=== PATIENT | male | born 1955 | race Caucasian/White ===

== ENCOUNTER → 2018-08-14 | Day surgery (SDC) | payer MEDICARE, BC ==
[2018-08-11 10:31] VITALS: BMI 31.8
[~2018-08-14] MED LIST: ALPRAZolam 0.25 MG TAB PO PRN; ASPIRIN 325 MG TAB PO STA; HEPARIN SODIUM 1,000 UN/ML (10ML VL) IV ONE; HEPARIN SODIUM 1,000 UN/ML (10ML VL) ONE; LIDOCAINE 1% INJ 10MG/ML (20 ML MDV) ONE; LIDOCAINE 1% INJ 10MG/ML (20 ML MDV) SQ ONE; MIDAZOLAM (PF) 2 MG/2 ML VIAL IV ONE; RX INFO: IV CONTRAST WAS GIVEN 1 EACH MISC MISCELLANE PRN; SODIUM CHLORIDE 0.9% 1,000 ML IV SCH; SODIUM CHLORIDE 0.9% 1,000 ML in EMPTY BAG 1 BAG IV ONE; VERAPAMIL 2.5 MG/ML 2 ML AMP ONE
[2018-08-14 09:27] VITALS: RESP 18; TEMP 97.7
[2018-08-14] MEDS: VERAPAMIL SYRINGE (5 MG/10 ML) INTRAARTER ONE ×2 (10:57→11:05)
[2018-08-14 14:29] VITALS: BP 118/66; PULSE 66
--- NOTE | 2018-08-14 15:12 | LTR ---
August 14, 2018 To: Dr. Torres Re: Candido Mayyd (51) Dear Dr. Torres, MrMurphy Marina underwent today a heart catheterization that revealed normal coronaries. I want to thank you for allowing us to participate in his care. Please do not hesitate to call with any questions or concerns. Sincerely, Wilfrid Hsu M.D. JENAE / BETH: [id number] /
--- NOTE | 2018-08-14 15:12 | CC ---
CARDIAC CATHETERIZATION REPORT DATE OF SERVICE: 08/14/2018 PERFORMING PHYSICIAN: Wilfrid Hsu MD, central supply technician. PROCEDURES PERFORMED: 1. Selective right and left coronary angiogram. 2. Left heart catheterization. INDICATION: This is a pleasant 62-year-old gentleman with history of hypertension and dyslipidemia who continues to have shortness of breath with exertion in spite of maximized medical treatment. He underwent a stress test that came in to be normal. Because of the continuation of his symptoms, heart catheterization was advised. APPROACH: Right radial artery. COMPLICATIONS: None. LEVEL OF SEDATION: Moderate with sedation length of 12 minutes. PROCEDURE DESCRIPTION: After obtaining informed consent, the patient was brought to the cardiac construction craft laborer. The right radial artery was cannulated using micropuncture technique. The micropuncture wire passed easily. Then I placed a 5-Vietnamese sheath in the right radial artery. After that I gave the patient 2 mg of verapamil IA and 10,000 units of heparin IV. Selective right and left coronary angiogram was performed using JR4 and JL3.5 catheters. Left heart catheterization was performed using the JR4 catheter, which flipped into the LV. Then I did pullback across the aortic valve. The procedure was completed without any complication. SELECTIVE CORONARY ANGIOGRAM: 1. The right coronary artery is a large-caliber vessel. It is a dominant vessel. It is angiographically normal. It bifurcates into PDA and PLV branches. Both appeared to be angiographically normal. 2. The left main is angiographically normal. It bifurcates into left circumflex, ramus intermedius and left anterior descending artery. 3. Left circumflex is a large-caliber vessel. It is a nondominant vessel. The left circumflex is angiographically normal. In the mid portion it gives rise to 3 obtuse marginal branches. They appeared to be angiographically normal. The circumflex continued after that as a small-caliber vessel in the AV groove. 4. Ramus intermedius is a moderate-caliber vessel and seems to be angiographically normal. 5. The LAD. The proximal LAD is normal and gives rise to a large diagonal branch which seems to be normal. The mid LAD and distal LAD appeared to be normal as well. HEMODYNAMICS: The left ventricular end-diastolic pressure was 14 mmHg without significant gradient across the aortic valve. CONCLUSION: 1. Normal coronary angiogram. 2. Normal left ventricular end-diastolic pressure. POST-PROCEDURE MANAGEMENT: 1. Medical treatment. 2. Follow up with the patient. JENAE / ASHLEYN: [id number] /
== END | disposition home or self-care (01) ==
LOC: CATHCVL 08:48
PROVIDERS: ATTEND Internal Medicine Interventional Cardiology
DX: R06.02 Shortness of breath (principal); I10 Essential (primary) hypertension; E78.5 Hyperlipidemia, unspecified; E78.00 Pure hypercholesterolemia, unspecified; Z79.899 Other long term (current) drug therapy; Z72.0 Tobacco use; Z88.6 Allergy status to analgesic agent
CPT/HCPCS: 93458; C1769; C1894; J2001; J1644; J2250

== ENCOUNTER → 2019-02-16 | Outpatient (CLI) | payer MEDICARE, BC ==
--- NOTE | 2019-02-16 09:02 | US ---
EXAMINATION TYPE: US duplex aorta DATE OF EXAM: 02/16/2019 COMPARISON: NONE CLINICAL HISTORY: Z13.6 Encounter for screening for cardiovascular d. EXAM MEASUREMENTS: Abdominal Aorta: Proximal: 2.7 x 2.6 cm Mid: 2.3 x 2.3 cm Distal: 2.1 x 1.7 cm Bifurcation: 1.0 cm 1.1 cm No evidence of AAA. Proximal portion difficult to evaluate due to large amounts of bowel gas. IMPRESSION: Proximal abdominal aorta was difficult to visualize however no sonographic evidence of ab dominal aortic aneurysm in the visualized portions of the abdominal aorta.
== END ==
LOC: RADUSWWP 06:53
PROVIDERS: ATTEND Family Medicine
DX: Z13.6 Encounter for screening for cardiovascular disorders (principal)
CPT/HCPCS: 93979

== ENCOUNTER → 2019-03-16 | Outpatient (CLI) | payer MEDICARE, BC ==
[2019-03-16 13:35] LABS: Basophils % (A) 1 %; Eosinophils # (A) 0.1 k/uL (0-0.7); Eosinophils % (A) 2 %; HCT 43.6 % (39.0-53.0); Lymphocytes # (A) 2.1 k/uL (1.0-4.8); Lymphocytes % (A) 26 %; MCHC 34.5 g/dL (31.0-37.0); MCV 89.7 fL (80.0-100.0); Mean Platelet Volume 6.5; Monocytes # (A) 0.6 k/uL (0-1.0); Monocytes % (A) 7 %; Neutrophils # (A) 5.1 k/uL (1.3-7.7); Neutrophils % (A) 63 %; Platelet Count 263 k/uL (150-450); RBC 4.86 m/uL (4.30-5.90); RDW 12.2 % (11.5-15.5); WBC 8.2 k/uL (3.8-10.6)
[2019-03-16 13:55] LABS: Potassium 4.2 mmol/L (3.5-5.1)
== END ==
LOC: LABPAT 12:09
PROVIDERS: ATTEND Orthopaedic Surgery
DX: Z01.812 Encounter for preprocedural laboratory examination (principal); M23.92 Unspecified internal derangement of left knee
CPT/HCPCS: 36415; 80051; 85025

== ENCOUNTER 2019-04-01 12:03 | Day surgery (SDC) | payer MEDICARE, BC ==
[2019-03-31 12:54] VITALS: BMI 32.1
--- NOTE | 2019-03-31 14:12 | HP ---
HISTORY AND PHYSICAL DATE OF SURGERY: 04/01/2019 Candido Marina is a 63-year-old patient seen with progressive left knee pain. We discussed options for treatment. He elected to proceed with arthroscopy. Consent was obtained. PAST MEDICAL HISTORY: Hypertension, hyperlipidemia. PAST SURGICAL HISTORY: Right total knee arthroplasty, revision right total knee arthroplasty. Implantation of neurostimulator. DAILY MEDICATIONS: 1. Amlodipine. 2. Losartan. 3. Simvastatin. ALLERGIES: CATAFLAM. SOCIAL HISTORY: He denies current tobacco use. PHYSICAL EVALUATION OF THE LEFT KNEE: Range of motion is -3 to 90. There is a moderately severe effusion present. Tenderness medial joint line. Positive medial Bobbi's. Ligaments are stable. Hip rotation is without pain. Distal neurovascular exam is intact. Left knee radiographs reveal mild osteoarthritis. IMPRESSION: 1. Internal derangement, left knee with meniscal tear. 2. Hypertension. 3. Hyperlipidemia. PLAN: Left knee arthroscopy with partial meniscectomy and debridement. MMODL / IJN: [id number] /
[~2019-04-01 12:03] MED LIST changes: -ALPRAZolam 0.25 MG TAB PO PRN; -ASPIRIN 325 MG TAB PO STA; -HEPARIN SODIUM 1,000 UN/ML (10ML VL) IV ONE; -HEPARIN SODIUM 1,000 UN/ML (10ML VL) ONE; -LIDOCAINE 1% INJ 10MG/ML (20 ML MDV) ONE; -LIDOCAINE 1% INJ 10MG/ML (20 ML MDV) SQ ONE; -MIDAZOLAM (PF) 2 MG/2 ML VIAL IV ONE; +ONDANSETRON 4 MG/2 ML VIAL IVP PRN; -RX INFO: IV CONTRAST WAS GIVEN 1 EACH MISC MISCELLANE PRN; -SODIUM CHLORIDE 0.9% 1,000 ML IV SCH; -SODIUM CHLORIDE 0.9% 1,000 ML in EMPTY BAG 1 BAG IV ONE; -VERAPAMIL 2.5 MG/ML 2 ML AMP ONE
[2019-04-01] MEDS: LACTATED RINGERS 1,000 ML IV SCH ×2 (13:30→13:35)
[2019-04-01] MEDS ORDERED: DEXAMETHASONE SOD PHOSPHATE 10 MG/ML 1 ML VIAL IV ONE (13:30)
[2019-04-01] MEDS ORDERED: fentaNYL (PF) 50 MCG/ML 2 ML AMP ONE (14:09)
[2019-04-01] MEDS ORDERED: BUPIVACAIN-EPI 0.25%-1:200,000 30 ML VIAL INTRAARTIC ONE (14:09)
[2019-04-01] MEDS ORDERED: PROPOFOL 10 MG/ML 20 ML VIAL IV ONE (14:09)
[2019-04-01] MEDS ORDERED: MIDAZOLAM 2 MG/2 ML VIAL ONE (14:09)
[2019-04-01] MEDS ORDERED: SUCCINYLCHOLINE CHLORIDE 100 MG/5 ML SYR IV ONE (14:09)
[2019-04-01] MEDS ORDERED: LIDOCAINE 1% INJ 10MG/ML (20 ML MDV) ONE (14:09)
[2019-04-01 14:59] VITALS: TEMP 96.8
[2019-04-01 15:01] VITALS: RESP 16
--- NOTE | 2019-04-01 15:03 | P.OP ---
Date of Procedure: 04/01/19 Preoperative Diagnosis: Internal derangement left knee Postoperative Diagnosis: 1. Tear medial and lateral meniscus left knee 2. Grade 3 chondromalacia medial femoral condyle 3. 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 Reactive synovitis medial, lateral and suprapatellar compartments left knee Procedure(s) Performed: 1. Arthroscopic partial medial meniscectomy left knee 2. Arthroscopic chondroplasty medial femoral condyle left knee 3. Arthroscopic chondroplasty patellofemoral joint left knee 4. Arthroscopic partial synovectomy medial, lateral and suprapatellar compartments left knee Anesthesia: KEENANA, local Surgeon: Anup Grimes Estimated Blood Loss (ml): 5 Pathology: none sent Condition: stable Disposition: PACU Indications for Procedure: 63-year-old patient seen with progressive left knee pain. After treatment options were discussed, he elected to proceed with arthroscopy. Operative Findings: See description of procedure Description of Procedure: Patient was taken to the operative suite. Patient underwent a general anesthetic by the department of anesthesia. Patient was given preoperative antibiotics. The left lower extremity was placed in a well-padded arthroscopic leg ware. The left leg was prepped and draped in the normal sterile orthopedic fashion. A lateral parapatellar and suprapatellar incision was made. Trochars were inserted. Arthroscopy was initiated. Suprapatellar pouch revealed diffuse thick reactive synovitis. The patellofemoral joint appeared to articulate congruently. There was grade 4 chondromalacia changes of the femoral sulcus with some peripheral osteochondral flap tear present as well as grade 3/4 chondromalacia changes about the inferior pole of the patella. The scope was guided into the medial gutter. No loose bodies or plica were identified. The scope was then guided into the medial compartment. A medial parapatellar incision was made. Trocar inserted followed by probe. There was a complex tear involving the posterior horn medial meniscus which extended into the midbody. There were grade 3 chondromalacia changes of the medial femoral condyle with some osteochondral flap tears present. There was thick reactive synovitis anteriorly. I performed a partial medial meniscectomy. I performed a chondroplasty of the medial femoral condyle. I performed a partial synovectomy decompressing the reactive synovitis. The residual meniscus was probed and found to be stable. There was an area of grade 4 chondromalacia no noted along the medial aspect of the medial tibial plateau. The residual osteochondral surface of the medial femoral condyle was stable. There was good decompression of the synovitis. Scope and probe were then guided into the intercondylar notch. Cruciates were identified, probed and found to be stable. The scope and probe were then guided into lateral compartment. There was a complex tear involving the posterior lateral meniscus. There were grade 1/2 chondromalacia changes lateral femoral condyle with no osteochondral flap tears present. There was thick reactive synovitis anteriorly. I performed a partial lateral meniscectomy down to stable tissue. I performed a partial synovectomy decompressing the reactive synovitis. The residual meniscus was stable. There was good decompression of the synovitis. The scope was in guided back into the suprapatellar compartment. I introduced a motorized shaver into the suprapatellar compartment. I debrided some piecemeal fragments of meniscus I encountered. I performed a chondroplasty to the femoral sulcus getting down to good stable osteochondral tissue. I performed a partial synovectomy decompressing the thick reactive synovitis. Shaver was removed. I took one more look on the entire knee, no residual debris. Instruments were now removed from the joint. The joint was infiltrated with .25% Marcaine. Steri-Strips were applied to the portal sites. Sterile dressings were applied. The patient was placed into a AZUCENA hose. No tourniquet was utilized. The patient was awakened, transferred to a bed and taken to recovery stable satisfactory condition.
[2019-04-01] MEDS: HYDROmorphone 0.5 MG/0.5 ML SYRINGE IVP PRN ×4 (15:08→15:34)
[2019-04-01 16:23] VITALS: BP 137/79; PULSE 75
== END 2019-04-01 16:48 | disposition home or self-care (01) ==
LOC: OR 12:03
PROVIDERS: ATTEND Orthopaedic Surgery
DX: M23.322 Other meniscus derangements, posterior horn of medial meniscus, left knee (principal); M23.352 Other meniscus derangements, posterior horn of lateral meniscus, left knee; M94.262 Chondromalacia, left knee; M65.862 Other synovitis and tenosynovitis, left lower leg; I10 Essential (primary) hypertension; E78.5 Hyperlipidemia, unspecified; I45.10 Unspecified right bundle-branch block; Z88.6 Allergy status to analgesic agent; Z96.651 Presence of right artificial knee joint; Z98.890 Other specified postprocedural states; Z79.899 Other long term (current) drug therapy; Z87.891 Personal history of nicotine dependence; Z98.811 Dental restoration status
CPT/HCPCS: 29880; J2250; J1100; J0690; J2405; J2001; J3010; J0330; J2704; J1170

== ENCOUNTER → 2019-10-14 | Outpatient (CLI) | payer MEDICARE | END | disposition home or self-care (01) | LOC: LABWHC1 10:02 | PROVIDERS: ATTEND Orthopaedic Surgery | DX: Z01.812 Encounter for preprocedural laboratory examination (principal) | CPT/HCPCS: 87070 ==

== ENCOUNTER 2019-11-08 10:33 | Day surgery (SDC) | payer MEDICARE ==
[2019-11-05 09:35] VITALS: BMI 32.1
--- NOTE | 2019-11-07 11:06 | HP ---
HISTORY AND PHYSICAL Surgery 11/08/2019. Candido Marina is a 64-year-old patient seen with symptomatic left knee osteoarthritis. We discussed options. He elected to proceed with left total knee arthroplasty. Consent regarding the procedure was obtained. Medical clearance was provided by Dr. Long. Cardiac clearance provided by Dr. Hsu. PAST MEDICAL HISTORY: Hypertension, hyperlipidemia. PAST SURGICAL HISTORY: Right total knee arthroplasty revision, right total knee arthroplasty, left knee arthroscopy. MEDICATIONS: Amlodipine, losartan, simvastatin. ALLERGIES: CATAFLAM. SOCIAL HISTORY: Denies tobacco use. PHYSICAL EXAMINATION: Evaluation of the left knee: Range of motion is -3 to 110. Tenderness along the medial joint line. Crepitus medial patellofemoral compartments. There is pain with patellofemoral compression. Ligaments are stable. Hip rotation is without pain. His distal neurovascular exam is intact. Radiographs of the left knee reveal severe osteoarthritic changes. IMPRESSION: 1. Left knee osteoarthritis. 2. Hypertension. 3. Hyperlipidemia. PLAN: Left total knee arthroplasty. MMODL / IJN: [id number] /
[~2019-11-08 10:33] MED LIST changes: +LIDOCAINE 1% (10MG/ML) FOR IV START INTRADERMA PRN; -ONDANSETRON 4 MG/2 ML VIAL IVP PRN; +ROPIVACAINE 246.25 MG, EPINEPHrine 0.5 MG, KETOROLAC 30 MG, cloNIDine HCL/PF 80 MCG, WA... MISCELLANE ONE; +TRANEXAMIC ACID 1,000 MG in SODIUM CHLORIDE 0.9% 100 ML IVPB ONE
[2019-11-08] MEDS ORDERED: ACETAMINOPHEN TAB 500 MG TAB ONE (11:09)
[2019-11-08] MEDS: MELOXICAM 7.5 MG TAB PO ONE ×2 (11:10→11:22)
[2019-11-08] MEDS: ACETAMINOPHEN TAB 500 MG TAB PO ONE ×2 (11:10→11:22)
[2019-11-08] MEDS ORDERED: MIDAZOLAM 2 MG/2 ML VIAL IVP ONE (11:18)
[2019-11-08] MEDS: ONDANSETRON 4 MG/2 ML VIAL ONE ×2 (11:20→11:22)
[2019-11-08] MEDS ORDERED: DEXAMETHASONE SOD PHOSPHATE 10 MG/ML 1 ML VIAL IV ONE (11:20)
[2019-11-08] MEDS: LACTATED RINGERS 1,000 ML IV SCH ×5 (11:21→20:53)
[2019-11-08] MEDS ORDERED: ROPIVACAINE 0.2%-NS ON-Q PUMP 1,090 MG, EMPTY PAIN BALL 1 EACH MISCELLANE PRN (11:36)
[2019-11-08] MEDS ORDERED: ROCURONIUM BROMIDE 10 MG/ML 5 ML VIAL IV ONE (13:01)
[2019-11-08] MEDS ORDERED: PROPOFOL 10 MG/ML 20 ML VIAL IV ONE (13:01)
[2019-11-08] MEDS ORDERED: fentaNYL (PF) 50 MCG/ML 2 ML AMP ONE (13:01)
[2019-11-08] MEDS ORDERED: GLYCOPYRROLATE 0.2 MG/ML 2 ML VIAL ONE (13:01)
[2019-11-08] MEDS ORDERED: LIDOCAINE 1% INJ 10MG/ML (20 ML MDV) ONE (13:01)
[2019-11-08] MEDS ORDERED: PHENYLEPHRINE-0.9% NACL SYG 1 MG/10 ML SYRINGE ONE (13:01)
[2019-11-08] MEDS ORDERED: MIDAZOLAM 2 MG/2 ML VIAL ONE (13:01)
[2019-11-08] MEDS ORDERED: NEOSTIGMINE 1 MG/ML 10 ML VIAL ONE (13:01)
[2019-11-08] MEDS ORDERED: TRANEXAMIC ACID 1,000 MG/10 ML VIAL ONE (13:01)
[2019-11-08] MEDS ORDERED: SODIUM CHLORIDE 0.9% 100 ML BAG ONE (13:01)
[2019-11-08] MEDS ORDERED: SUCCINYLCHOLINE CHLORIDE 100 MG/5 ML SYR IV ONE (13:01)
[2019-11-08] MEDS ORDERED: SODIUM CHLORIDE 0.9% 50 ML IV ONE (14:00)
[2019-11-08] MEDS ORDERED: LACTATED RINGERS 1,000 ML IV ONE (14:15)
[2019-11-08] MEDS ORDERED: ONDANSETRON 4 MG/2 ML VIAL IVP PRN (14:51)
[2019-11-08] MEDS ORDERED: NALOXONE 0.4 MG/ML 1 ML VIAL IV PRN (14:51)
[2019-11-08] MEDS ORDERED: HYDROcodone/APAP 5-325MG 1 EACH TAB PO PRN ×2 (14:51)
[2019-11-08] MEDS ORDERED: HYDROmorphone 0.5 MG/0.5 ML SYRINGE IVP PRN (14:51)
[2019-11-08] MEDS ORDERED: HYDROmorphone 1 MG/ML 1 ML SYRINGE IVP PRN (14:51)
--- NOTE | 2019-11-08 14:51 | P.OP ---
Date of Procedure: 11/08/19 Preoperative Diagnosis: Left knee osteoarthritis Postoperative Diagnosis: Left knee osteoarthritis Procedure(s) Performed: Left total knee arthroplasty Implants: 1. Depuy attune size 7 left cruciate-retaining cemented femur 2. Depuy attune size 7 fixed bearing cemented tibial baseplate 3. Depuy attune size 7 fixed bearing cruciate retaining 7 mm polyethylene tibial insert 4. Depuy attune 38 mm all polyethylene cemented patella Anesthesia: GETA, regional (Adductor canal catheter), local Surgeon: Anup Grimes Marbleizing Machine Tender #1: Daniel Hall Estimated Blood Loss (ml): 45 Pathology: other (Bone) Condition: stable Disposition: PACU Indications for Procedure: 64 -year-old patient seen with symptomatic left knee osteoarthritis. After treatment options were discussed, he elected to proceed with total knee arthroplasty. Operative Findings: See description of procedure Description of Procedure: Patient was taken to the operative suite after having an adductor canal catheter placed by the department of anesthesia. Patient underwent a general anesthetic by the department of anesthesia. Patient was given preoperative IV intake antibiotics and TXA. A well-padded tourniquet was placed about the left lower extremity. The lower extremity was then prepped and draped in the normal sterile orthopedic fashion. The extremity was elevated, a tourniquet was insuf flated to 300. A standard anterior incision was made sharply through skin. Dissection was taken down through the subcutaneous soft tissues down to the extensor mechanism. A medial arthrotomy was performed, patella was everted and knee was flexed. There was advanced osteoarthritis noted. I introduced my distal intramedullary femoral drill. I then introduced the distal femoral cutting jig. Matthew VALLE secured the cutting jig with 2 pins. I held retractors in position while Matthew VALLE performed the distal femoral resection through the guide area we now removed her distal femoral cutting guide. We now placed our 4-in-1 femoral cutting block and positioned and it was secured with 2 pins by Matthew VALLE while I held the block in position. The distal femoral finishing was now completed. A proximal tibial cutting guide was positioned. I held the guide in the appropriate position with both hands well Matthew VALLE inserted stabilizing pins into the guide. Proximal tibial cut was made. We now placed a trial femoral component into position, along with an appropriate size tibial tray and insert. We now took the knee through range of motion and had full extension good flexion and good overall soft tissue balance noted. The patella was everted and stabilized with 2 towel clips held by Matthew VALLE while I performed a flush with patellar quad tendon utilizing a fresh sawblade. We templated the patella, appropriate drill holes were made. An appropriate trial patella was positioned, knee was taken through full range of motion with the patella tracking very nicely. The trial patella was removed. Drill holes were made through the femoral component. All trial components were removed after marking off the appropriate rotation of the tibia. Retractors were now positioned along the proximal tibia. An appropriate keel punch was made with the appropriate size tibial guide by myself on Matthew VALLE assisted by holding retractors. At this point appropriate size implants were chosen and opened. The joint was irrigated copiously with pulse lavage mechanical irrigation. The posterior capsule was infiltrated with local analgesic. The wound was irrigated with pulse lavage mechanical irrigation. We mixed antibiotic methylmethacrylate. We placed the knee into flexion. We placed multiple retractors assisted by Matthew VALLE to expose the proximal tibia. Once the methyl methacrylate was ready, the tibial component was cemented into place removing any excess methylmethacrylate form by both myself and Matthew VALLE. The femoral component was cemented into place removing the removing any excess methylmethacrylate performed by both myself and Matthew VALLE. We then inserted the appropriate size polyethylene tibial insert. We made sure that it was locked into position. We took the knee into full extension, and then back in a flexion making sure we had removed any excess methylmethacrylate. The patellar component was then cemented down and secured with clamp. Excess methylmethacrylate removed. We kept the knee in full extension, patellar clamp in position until methylmethacrylate had hardened. Once it had hardened the patellar clamp was removed. The knee was taken through full range of motion. The patella tracked nicely. There was good soft tissue balancing. The tourniquet was now released. Additional hemostasis was achieved via electrocautery. A second gram of TXA was given. The wound again was irrigated with pulse lavage mechanical irrigation. The superficial soft tissues were infiltrated local analgesic. The extensor mechanism was repaired with Vicryl. We checked the repair with range of motion and it was stable. The subcutaneous soft tissues were repaired with Vicryl in layers. The skin was approximated with pernio/Dermabond. Sterile dressings were applied followed by loose web roll and Vargas bandage. The patient was transferred to a bed, and taken to recovery in stable and satisfactory condition. Matthew VALLE assisted with this complex procedure.
[2019-11-08] MEDS: HYDROmorphone 0.5 MG/0.5 ML SYRINGE IVP PRN ×5 (15:20→20:10)
[2019-11-08] MEDS ORDERED: MEPERIDINE 50 MG/ML SYRINGE IVP ONE (15:43)
--- NOTE | 2019-11-08 16:18 | XR ---
Left knee HISTORY: Status post left knee arthroplasty 2 views of left knee Patient is status post left knee arthroplasty. There is anatomic alignment. Lucency is present in the soft tissues. IMPRESSION: Orthopedic follow-up.
[2019-11-08] MEDS: ENOXAPARIN 30 MG/0.3 ML SYRINGE SQ SCH (20:10)
[2019-11-08] MEDS ORDERED: SENNOSIDES-DOCUSATE SODIUM 1 EACH TAB PO SCH (21:00)
[2019-11-08] MEDS ORDERED: amLODIPine 10 MG TAB PO SCH (22:30)
[2019-11-09] MEDS: HYDROmorphone 0.5 MG/0.5 ML SYRINGE IVP PRN ×2 (00:17→05:09)
--- NOTE | 2019-11-09 06:21 | P.PN ---
Progress Note - Text 11/08 605am 64-year-old male status post total knee replacement. Patient has an On-Q pump for postop pain control with a VAS of 2. Patient did receive IV medication during the night. Doing well. Plan to continue On-Q pump infusion
--- NOTE | 2019-11-09 06:37 | P.ANPRN ---
Procedure Note - Anesthesia - Nerve Block Performed Left Adductor Canal Infusion Time Out Performed: Yes Date of Procedure: 11/08/19 Procedure Start Time: 11:18 Procedure Stop Time: :30 Location of Patient: PreOp Indication: Acute Post-Operative Pain, Requested by Surgeon Sedation Type: Sedate with meaningful contact maintained Preparation: Sterile Prep, Sterile Dressing Position: Supine Catheter: Indwelling Needle Types: Pajunk Needle Gauge: 21 Ultrasound used to visualize needle placement: Yes Ultrasound used to observe medication spread: Yes Blood Aspirated: No Pain Paresthesia on Injection Noted: No Resistance on Injection: Normal Image Stored and Saved: Yes Events: Uneventful and Well Tolerated (Ropivacaine 0.5% 20 mL plus dexamethasone 4 mg)
[2019-11-09 07:37] VITALS: BP 119/75; PULSE 68; RESP 18; TEMP 98.1
[2019-11-09 08:07] LABS: Basophils % (A) 0 %; Eosinophils # (A) 0.1 k/uL (0-0.7); Eosinophils % (A) 1 %; HCT 40.5 % (39.0-53.0); HGB 14.3 gm/dL (13.0-17.5); Lymphocytes % (A) 6 %; MCHC 35.3 g/dL (31.0-37.0); MCV 90.6 fL (80.0-100.0); Monocytes # (A) 0.8 k/uL (0-1.0); Monocytes % (A) 5 %; Neutrophils # (A) 13.9 k/uL (1.3-7.7); Neutrophils % (A) 88 %; Platelet Count 210 k/uL (150-450); RBC 4.47 m/uL (4.30-5.90); RDW 12.7 % (11.5-15.5); WBC 15.9 k/uL (3.8-10.6)
[2019-11-09] MEDS: ENOXAPARIN 30 MG/0.3 ML SYRINGE SQ SCH (08:13)
[2019-11-09] MEDS ORDERED: MELOXICAM 7.5 MG TAB PO SCH (09:00)
[2019-11-09] MEDS ORDERED: LOSARTAN-HCTZ 50-12.5 MG 1 EACH TAB PO SCH (09:00)
--- NOTE | 2019-11-09 10:16 | P.PN ---
Subjective Progress Note Date: 11/09/19 Principal diagnosis: Status post left total knee arthroplasty Patient is doing well today, pain is well-controlled. He has no chest pain or shortness of breath. Physical therapy will be by shortly to work with him. Objective - Vital Signs Vital signs: Vital Signs Temp 98.1 F 11/09/19 07:00 Pulse 68 11/09/19 07:00 Resp 18 11/09/19 07:00 BP 119/75 11/09/19 07:00 Pulse Ox 96 11/09/19 07:00 Intake & Output 11/08/19 11/09/19 11/09/19 18:59 06:59 18:59 Intake Total 2049 Output Total 45 700 Balance 2004 Weight 102.8 kg 102.8 kg Intake: IV 2049 Output: Urine 700 Estimated Blood Loss 45 Other: Voiding Method Urinal Toilet # Voids 2 - Exam Left lower extremity: Incision is clean, dry, and intact. The optifoam is in good condition. There is minimal soft tissue swelling and ecchymosis surrounding the medial and lateral aspects of the incision. Calf is soft, no tenderness with palpation. Plantar flexion, dorsiflexion, EHL, FHL are intact. Sensory exam to light touch throughout the extremity is intact, dorsal pedis pulses 2+. - Labs CBC & Chem 7: 11/09/19 07:21 Labs: Abnormal Lab Results - Last 24 Hours (Table) 11/09/19 Range/Units 07:21 WBC 15.9 H (3.8-10.6) k/uL Neutrophils # 13.9 H (1.3-7.7) k/uL Assessment and Plan Assessment: Status post left total knee arthroplasty Plan: Pain control, plan for discharge home on oral medication GI and DVT prophylaxis, aspirin 81 mg twice a day Home physical therapy and nursing after discharge Wound care instructions discussed Icing and elevating techniques discussed Hopeful discharge to home today Time with Patient: Less than 30
[2019-11-09] MEDS: LACTATED RINGERS 1,000 ML IV SCH (11:43)
[2019-11-09] MEDS ORDERED: amLODIPine 10 MG TAB PO SCH (22:30)
--- NOTE | 2019-11-10 08:06 | P.DS ---
Providers Date of admission: 11/08/2019 Expected date of discharge: 11/09/19 Attending physician: Anup Grimes Consults: 11/08/19 14:51 Consult Physician Routine Consulting Provider: Leny Torres Consult Reason/Comments: Medical management Do you want consulting provider notified?: Yes Primary care physician: Leny Torres Hospital Course: Date of admission: 11/08/2019 Date of discharge: 11/09/2019 Admission diagnosis: status post left total knee arthroplasty Discharge diagnosis: same Attending physician: Dr. Grimes Surgical procedures: Left total knee arthroplasty Brief history: Patient is a 64-year-old female with a history of of progressive primary left knee osteoarthritis. At this point patient has failed conservative treatment measures and has opted to proceed with a elective of total knee arthroplasty. Hospital course: Details of patient's surgery can be found in operative report. Patient tolerated the procedure well and was subsequently transported to orthopedic floor. Patient's orthopeidc and medical care was provided daily. Patient had daily laboratory tests performed for evaluation of overall blood counts . Patient had daily physical therapy to include strengthening range of motion as well as education with walker ambulation. Patient was treated with Lovenox for their postoperative DVT prophylaxis during their inpatient stay. Patient was noted to have a relatively uneventful postoperative course. Patient reported satisfactory pain control with oral pain medications by postoperative day 0. Patient showed satisfactory progress with physical therapy. Patient moved steadily through the program and had no difficulty meeting the goals by postoperative day 1. Given patient's otherwise satisfactory course and having met physical therapy goals, plan is to discharge patient home on postoperative day 1. Discharge condition/disposition: Patient will be discharged home in stable condition. Discharge medications: Instructions are given on resumption of patient's normal daily medications per primary care recommendation, in addition patient will be prescribed Baldwin 7.5 mg/225 mg, tramadol 50 mg, Colace 100 mg, aspirin 81 mg. Discharge instructions: 1. Wound care and infection precautions, keep incision dry and covered while showering, no lotions, creams, moisturizers. No soaking, tubs, pools, hottubs. Do not scrub over the incision. 2. Weight-bear as tolerated with walker / cane until follow-up. 3. Ice and elevate when necessary. Do not exceed 20 minutes per hour with ice pack. 4. Utilize compression sleeve until seen at first follow up appointment. 5. Visiting nursing care. 6. Home physical therapy including home CPM. 7. Pain meds and anticoagulants per prescription. 8. Pain medication has potential to cause constipation. Increase oral fluid and fiber intake. Contact primary care provider if you have not had a bowel movement within 48 hours after discharge 9. No anti-inflammatory medication until discussed at first post operative visit, this including Motrin, Aleve, Mobic, Diclofenac 10. Follow up in office at 2 weeks postop with Matthew Hall PA-C 11. Follow up with your primary care doctor 7-10 days after discharge. 12. Contact [facility] with any questions, . Procedures: left total knee arthroplasty Patient Condition at Discharge: Good Plan - Discharge Summary Discharge Rx Participant: Yes New Discharge Prescriptions: New Aspirin [Adult Low Dose Aspirin EC] 81 mg PO BID #60 tablet. Docusate [Colace] 100 mg PO DAILY #30 capsule HYDROcodone/APAP 7.5-325MG [Baldwin 7.5] 1 - 2 each PO Q6HR PRN #40 tab PRN Reason: Pain traMADol HCl [Ultram] 50 mg PO Q6H PRN #28 tab PRN Reason: Pain Continue amLODIPine BESYLATE [Norvasc] 10 mg PO HS Simvastatin [Zocor] 20 mg PO HS Fish Oil/Dha/Epa [Fish Oil 1,200 mg Fish Oil] 1,200 mg PO BID Losartan/Hydrochlorothiazide [Losartan-Hctz 100-25 mg Tab] 1 tab PO DAILY Ibuprofen [Motrin] 800 mg PO TID PRN PRN Reason: Pain Acetaminophen Tab [Tylenol] 325 - 650 mg PO Q4H PRN PRN Reason: Pain Vitamin B Complex 1 each PO DAILY Hydrocodone/Acetaminophen [Baldwin 5-325] 1 each PO Q6HR PRN #12 tab PRN Reason: Pain Discharge Medication List Simvastatin [Zocor] 20 mg PO HS 02/28/16 [History] amLODIPine BESYLATE [Norvasc] 10 mg PO HS 02/28/16 [History] Fish Oil/Dha/Epa [Fish Oil 1,200 mg Fish Oil] 1,200 mg PO BID 08/11/18 [History] Acetaminophen Tab [Tylenol] 325 - 650 mg PO Q4H PRN 03/31/19 [History] Ibuprofen [Motrin] 800 mg PO TID PRN 03/31/19 [History] Losartan/Hydrochlorothiazide [Losartan-Hctz 100-25 mg Tab] 1 tab PO DAILY 03/31/19 [History] Vitamin B Complex 1 each PO DAILY 03/31/19 [History] Hydrocodone/Acetaminophen [Baldwin 5-325] 1 each PO Q6HR PRN #12 tab 04/01/19 [Rx] Aspirin [Adult Low Dose Aspirin EC] 81 mg PO BID #60 tablet. 11/09/19 [Rx] Docusate [Colace] 100 mg PO DAILY #30 capsule 11/09/19 [Rx] HYDROcodone/APAP 7.5-325MG [Baldwin 7.5] 1 - 2 each PO Q6HR PRN #40 tab 11/09/19 [Rx] traMADol HCl [Ultram] 50 mg PO Q6H PRN #28 tab 11/09/19 [Rx] Follow up Appointment(s)/Referral(s): Leny Torres DO [Primary Care Provider] - 11/12/19 2:20 pm Daniel Hall PAC [PHYSICIAN LEGAL DEPARTMENT MANAGER] - 11/24/19 3:40 pm Patient Instructions/Handouts: *Surgery [facility] - On-Q Pain Pump Discharge Instructions, Precautions after Total Joint Replacement Surgery (DC), Knee Replacement (DC) Activity/Diet/Wound Care/Special Instructions: Orthopedic Discharge Instructions: 1. Wound care and infection precautions, keep incision dry and covered while showering, no lotions, creams, moisturizers. No soaking, pools, hot tubs. Do not scrub over incision. 2. Weight-bear as tolerated with walker / cane until follow-up. 3. Ice and elevate when necessary. Do not exceed 20 minutes per hour with ice pack. 4. Utilize compression sleeve until seen at first follow up appointment. 5. Pain meds and anticoagulants per prescription. 6. Pain medication has potential to cause constipation. Increase oral fluid and fiber intake. Contact primary care provider if you have not had a bowel movement within 48 hours after discharge. 7. No anti-inflammatory medication until discussed at first post operative visit, this including Motrin, Aleve, Mobic, Diclofenac. 8. Follow up in office at 2 weeks postop with Matthew Hall PA-C 9. Follow up with your primary care doctor 7-10 days after discharge. 10. Contact [facility] with any questions, . Discharge Disposition: HOME WITH HOME HEALTH SERVICES
== END 2019-11-09 13:35 | disposition home health service (06) ==
LOC: OR 10:33 → 4SSUR 14:43 → OR 11-09 13:35
PROVIDERS: ATTEND Orthopaedic Surgery
DX: M17.12 Unilateral primary osteoarthritis, left knee (principal); I10 Essential (primary) hypertension; E78.5 Hyperlipidemia, unspecified
CPT/HCPCS: 27447; 64448; 97110; 97161; 76942; 85025; 73560; C1776; J2250; J0171; J1100; J2710; J2175; J0690 ×2; J2405; J2001; J3010; J1885; J1650 ×2; J2795 ×2; J2370; J0330; J2704; J0735; J1170 ×2; 88300

== ENCOUNTER → 2022-04-10 | Outpatient (CLI) | payer MEDICARE ==
--- NOTE | 2022-04-10 10:14 | XR ---
EXAMINATION TYPE: XR chest 2V DATE OF EXAM: 04/10/2022 COMPARISON: NONE HISTORY: Prostate cancer. Presurgical study. TECHNIQUE: Frontal and lateral views of the chest are obtained. FINDINGS: There is no focal air space opacity, pleural effusion, or pneumothorax seen. The cardiac silhouette size is within normal limits with atherosclerotic change in the aortic knob. Lower thoraci c spinal stimulator device is seen. IMPRESSION: No acute cardiopulmonary process.
[2022-04-10 14:26] LABS: Basophils # (A) 0.04 X 10*3/uL (0.00-0.10); Basophils % (A) 0.6 %; Eosinophils # (A) 0.14 X 10*3/uL (0.04-0.35); HCT 44.8 % (39.6-50.0); HGB 15.4 g/dL (13.0-17.0); Immature Grans, Automated 0.1 %; Lymphocytes # (A) 1.68 X 10*3/uL (0.90-5.00); MCH 31.3 pg (27.0-32.0); MCHC 34.4 g/dL (32.0-37.0); MCV 91.1 fL (80.0-97.0); Mean Platelet Volume 10.5 fL (9.5-12.2); Monocytes # (A) 0.61 X 10*3/uL (0.20-1.00); Monocytes % (A) 8.7 %; NRBC Per 100 WBC 0 /100 WBCS (0.0-0.0); Neutrophils # (A) 4.52 X 10*3/uL (1.80-7.70); Neutrophils % (A) 64.6 %; Platelet Count 239 X 10*3/uL (140-440); RBC 4.92 X 10*6/uL (4.40-5.60); RDW 12.4 % (11.5-14.5)
[2022-04-10 14:44] LABS: African American GFR (CKD) 103.1 (60.0-200.0); BUN/Creat Ratio 18.52 Ratio (12.00-20.00); Calcium 9.6 mg/dL (8.7-10.3); Carbon Dioxide 23.7 mmol/L (20.0-27.5); Non-African American GFR(CKD) 88.9 (60.0-200.0); Potassium 4.1 mmol/L (3.5-5.5)
[2022-04-10 15:29] LABS: Appearance,Urine Clear (Clear); Bilirubin,Urine Negative (Negative); Blood,Urine Negative (Negative); Color,Urine Yellow (Yellow); Ketones,Urine Negative (Negative); Nitrite,Urine Negative (Negative); Specific Gravity,Urine 1.011 (1.001-1.030); Urobilinogen,Urine 0.2 (0.2,1.0)
== END | disposition home or self-care (01) ==
LOC: LABPAT 09:38
PROVIDERS: ATTEND Urology
DX: Z01.812 Encounter for preprocedural laboratory examination (principal); C61 Malignant neoplasm of prostate; R09.89 Other specified symptoms and signs involving the circulatory and respiratory systems
CPT/HCPCS: 71046; 80048; 81003; 85025; 87086

== ENCOUNTER → 2022-04-18 | Outpatient (CLI) | payer MEDICARE ==
--- NOTE | 2022-04-18 08:46 | CT ---
EXAMINATION TYPE: CT cervical spine wo con DATE OF EXAM: 04/18/2022 COMPARISON: None HISTORY: Neck stiffness. No injury. CT DLP: 625.[address] of the cervical spine was performed with bone and soft tissue window settings submitted . Coronal and sagittal reconstruction is obtained. There is normal alignment and prevertebral soft tissues. C2-3, C3-4 and C4-5 disc spaces are within normal limits. Degenerative changes of the cervical apophy seal joints are noted at C2-3 on the right with right foraminal encroachment. At C3-4 there is bilate ral neural foraminal encroachment at C4-5 there is mild left-sided encroachment seen. C5-6: There is moderate degenerative disc space narrowing. Mild posterior disc bulge. Partial encapsu lating spur resulting in disc endplate complex. No evidence for central stenosis or vianey herniation. Degenerative change of the cervical apophyseal joints resulting in moderate right greater than left foraminal encroachment. C6-7: Severe degenerative disc space narrowing. Ventral and dorsal spondylosis with mild disc bulge. There is effacement of the ventral thecal sac with borderline central stenosis. Bilateral neural fora ji encroachment appreciated. C7-T1: Within normal limits. IMPRESSION: 1. Degenerative disc disease as discussed. 2. Borderline central stenosis identified at C6-7. 3. Varying degrees of multilevel neural foraminal encroachment as outlined above.
== END | disposition home or self-care (01) ==
LOC: RADCTMAIN 07:43
PROVIDERS: ATTEND Physical Medicine & Rehabilitation
DX: M47.812 Spondylosis without myelopathy or radiculopathy, cervical region (principal); M50.322 Other cervical disc degeneration at C5-C6 level; M48.02 Spinal stenosis, cervical region
CPT/HCPCS: 72125

== ENCOUNTER 2022-04-22 09:31 | Day surgery (SDC) | payer MEDICARE ==
[~2022-04-22 09:31] MED LIST changes: +HEPARIN SODIUM,PORCINE/PF 5,000 UNIT/0.5 ML SYRINGE SQ PRN; -LIDOCAINE 1% (10MG/ML) FOR IV START INTRADERMA PRN; -ROPIVACAINE 246.25 MG, EPINEPHrine 0.5 MG, KETOROLAC 30 MG, cloNIDine HCL/PF 80 MCG, WA... MISCELLANE ONE; -TRANEXAMIC ACID 1,000 MG in SODIUM CHLORIDE 0.9% 100 ML IVPB ONE
[2022-04-22] MEDS ORDERED: DEXAMETHASONE SOD PHOSPHATE 4 MG/ML 1 ML VIAL IV ONE (09:41)
[2022-04-22] MEDS ORDERED: LIDOCAINE 1% (10MG/ML) FOR IV START INTRADERMA PRN (09:41)
[2022-04-22] MEDS ORDERED: ONDANSETRON 4 MG/2 ML VIAL IVP ONE (09:41)
[2022-04-22] MEDS ORDERED: LACTATED RINGERS 1,000 ML IV ONE ×2 (10:30)
[2022-04-22] MEDS ORDERED: MIDAZOLAM 2 MG/2 ML VIAL IVP ONE (10:53)
--- NOTE | 2022-04-22 11:25 | P.HPIHPCON ---
History of Present Illness H&P Date: 04/22/22 Chief Complaint: prostate cancer This is a 66-year-old male history of [place] 7 (3+4) prostate cancer. Option of robotic prostatectomy versus radiation therapy was discussed with him in detail. Risk and benefit of each approach was discussed in details. He agreed to proceed with a robotic radical prostatectomy Discussed risk which includes but not limited to bleeding, infection, urinary incontinence, erectile dysfunction, strictures. Discussed risk of injury to nearby organs which includes but not limited to bladder, ureter, rectum and bowel. Discussed also with him risk of anesthesia. Discussed also potential of persisting cancer and cancer recurrence even with surgery. He understood all the risk and agreed to proceed Consent for Procedure: I have explained the operation/procedure to the patient, including the risks, benefits, side effects, alternative therapies (including not receiving the proposed treatment or service), the likelihood of the patient achieving his/her goals, and potential recuperation problems for the procedure/sedation/analgesia, as well as any blood products, if indicated. I also explained to the patient the risks, benefits and side effects of the alternatives, as well as the risks related to not receiving the proposed procedure, care, treatment, or services. Past Medical History Past Medical History: Cancer, Hyperlipidemia, Hypertension Additional Past Medical History / Comment(s): "MINOR LEAKY HEART VALVE", SKIN CANCER ," HAS A NEURO STIMULATOR IMPLANTED IN BACK", prostate cancer History of Any Multi-Drug Resistant Organisms: None Reported Past Surgical History: Heart Catheterization, Joint Replacement Additional Past Surgical History / Comment(s): rt total knee x 2, SPINAL CORD STIMULATOR , arthroscopy rt knee lft knee replacement pain injections to neck approx november 2021 Past Anesthesia/Blood Transfusion Reactions: No Reported Reaction Additional Past Anesthesia/Blood Transfusion Reaction / Comment(s): pt reports loss of hearing to one ear after surgery on his knee. she is unsure which ear but they were told this was caused by anesthetics. Smoking Status: Former smoker - Past Family History Mother Family Medical History: Cancer Additional Family Medical History / Comment(s): BREAST CANCER Father Family Medical History: Cancer Additional Family Medical History / Comment(s): throat. Brother(s) Family Medical History: Cancer Additional Family Medical History / Comment(s): facial Sister(s) Family Medical History: Cancer Additional Family Medical History / Comment(s): BREAST CANCER Medications and Allergies Home Medications Medication Instructions Recorded Confirmed Type amLODIPine BESYLATE [Norvasc] 10 mg PO HS 02/28/16 04/22/22 History Vitamin B Complex 1 each PO DAILY 03/31/19 04/22/22 History Cholecalciferol (Vitamin D3) 1 tab PO DAILY 04/17/22 04/22/22 History [Vitamin D3 (125 MCG = 5,000 IU)] Losartan [Cozaar] 25 mg PO DAILY 04/17/22 04/22/22 History Querstin 1 tab PO DAILY 04/17/22 04/22/22 History Rosuvastatin Calcium 20 mg PO HS 04/17/22 04/22/22 History hydroCHLOROthiazide 12.5 mg PO DAILY 04/17/22 04/22/22 History Allergies Allergy/AdvReac Type Severity Reaction Status Date / Time diclofenac [From Cataflam] Allergy Nausea & Verified 04/22/22 09:53 Vomiting Surgical - Exam Vital Signs Temp Pulse Resp BP Pulse Ox 97.4 F L 81 15 156/78 98 04/22/22 09:59 04/22/22 09:59 04/22/22 09:59 04/22/22 09:59 04/22/22 09:59 - General no distress, no pain - Eyes normal ocular movement, no pale - ENT normal nares, normal mucosa - Respiratory normal expansion, normal respiratory effort - Psychiatric oriented to time, oriented to person, oriented to place Assessment and Plan Assessment: OR for robotic radical prostatectomy
--- NOTE | 2022-04-22 11:43 | P.ANPRN ---
Procedure Note - Anesthesia - Nerve Block Performed Bilateral Erector Spinae Single Time Out Performed: Yes Date of Procedure: 04/22/22 Procedure Start Time: 10:52 Procedure Stop Time: 11:02 Location of Patient: PreOp Indication: Acute Post-Operative Pain, Requested by Surgeon Sedation Type: Sedate with meaningful contact maintained Preparation: Sterile Prep, Sterile Dressing Position: Prone Catheter: None Needle Types: Facet Needle Gauge: 20 Ultrasound used to visualize needle placement: Yes Ultrasound used to observe medication spread: Yes Injectate: Other (see comment) (Ropivacaine 0.25% + decadron 2 mg 30 ml per side) Blood Aspirated: No Pain Paresthesia on Injection Noted: No Resistance on Injection: Normal Image Stored and Saved: Yes Events: Uneventful and Well Tolerated
[2022-04-22] MEDS ORDERED: HYDROcodone/APAP 5-325MG 1 EACH TAB PO PRN (12:00)
[2022-04-22] MEDS ORDERED: LIDOCAINE 2% INJ 20 MG/ML (2 ML VIAL) ONE (12:04)
[2022-04-22] MEDS ORDERED: PROPOFOL 10 MG/ML 20 ML VIAL IV ONE (12:04)
[2022-04-22] MEDS ORDERED: SUCCINYLCHOLINE CHLORIDE 200 MG/10 ML VIAL IV ONE (12:04)
[2022-04-22] MEDS ORDERED: ROCURONIUM 10 MG/ML (5 ML VIAL) IV ONE (12:04)
[2022-04-22] MEDS ORDERED: MIDAZOLAM 2 MG/2 ML VIAL ONE (12:04)
[2022-04-22] MEDS ORDERED: fentaNYL (PF) 50 MCG/ML 2 ML AMP ONE (12:04)
[2022-04-22] MEDS ORDERED: GLYCOPYRROLATE 0.2 MG/ML 2 ML VIAL ONE (12:04)
[2022-04-22] MEDS ORDERED: HYDROmorphone (PF) 1 MG/ML ONE (12:04)
[2022-04-22] MEDS ORDERED: ROPIVACAINE 5 MG/ML 30 ML VIAL ONE (12:04)
[2022-04-22] MEDS ORDERED: NEOSTIGMINE 1 MG/ML 10 ML VIAL ONE (12:04)
[2022-04-22] MEDS ORDERED: PHENYLEPHRINE-0.9% NACL SYG 1,000 MCG/10 ML SYRINGE ONE (12:04)
[2022-04-22] MEDS ORDERED: DEXAMETHASONE SOD PHOSPHATE 4 MG/ML 1 ML VIAL ONE (12:04)
[2022-04-22] MEDS ORDERED: BUPIVACAINE (PF) 0.25% 30 ML VIAL SQ ONE (14:12)
[2022-04-22] MEDS: HYDROmorphone 0.5 MG/0.5 ML SYRINGE IVP PRN ×2 (16:18→16:32)
--- NOTE | 2022-04-22 16:38 | P.OP ---
Date of Procedure: 04/15/22 Preoperative Diagnosis: Prostate cancer Postoperative Diagnosis: Same Procedure(s) Performed: Robotic-assisted laparoscopic radical prostatectomy Implants: None Anesthesia: LYNNE Surgeon: Nathanael Hines Estimated Blood Loss (ml): 150 Pathology: other (prostate and bilateral seminal vesicle) Indications for Procedure: This is a 66-year-old male history of [place] 7 (3+4) prostate cancer. Option of robotic prostatectomy versus radiation therapy was discussed with him in detail. Risk and benefit of each approach was discussed in details. He agreed to proceed with a robotic radical prostatectomy Discussed risk which includes but not limited to bleeding, infection, urinary incontinence, erectile d ysfunction, strictures. Discussed risk of injury to nearby organs which includes but not limited to bladder, ureter, rectum and bowel. Discussed also with him risk of anesthesia. Discussed also potential of persisting cancer and cancer recurrence even with surgery. He understood all the risk and agreed to proceed Description of Procedure: After preoperative antibiotics were started, the patient was taken to the operating room. Anesthesia was induced and the patient was placed in supine position, with adequate padding of the pressure points, shoulders, back, legs and arms. He was then prepped and draped in the standard fashion. A critical pause was performed using two patient identifiers. A 16F ramirez catheter was placed to gravity drainage. A pneumo-peritoneum was created with placement of a Veress needle to 20 mm Hg without complication, and a 8 Fr trocar was placed above the umbillicus. Under direct vision a 8mm robotic ports was placed lateral to each rectus slightly below the camera port. The left iliac fossa 8mm port was placed. The right assistant clinical nurse manager right iliac fossa 12mm port and right paramedian 5mm portwere placed. After the patient was placed in the trendelenberg position, the robot was then docked to the 8mm robotic ports and then each robotic arm and tower was checked in relation to the patient's legs and hands to avoid inadvertent compression. The peritoneal cavity was inspected. An inverted U-shaped incision began laterally to the left medial umbilical ligament and extended high across the midline to the right umbilical ligament. The limbs of the "U" extended to the level of the vasa on both sides. We next developed the preperitoneal space and the space of Retzius. Cautery was used to dissected the bladder away from the prostate. After the anterior bladder neck was incised and the bladder entered the the posterior bladder neck was exposed and the ureteral orifces identified. The posterior bladder neck was then incised and dissected away from the prostate. The vas and the seminal vesicles were now exposed and dissected to their insertions into the prostate and were not spared. The posterior layer of the Denonvillier's fascia was incised to enter jonelle the plane between prostate and perirectal fat. Each lateral pedicle was controlled with clips and cautery for hemostasis. Bilateral partial nerve preservation was performed. The puboprostatic ligament was incised where it inserted into the apex of the prostate and a plane between urethra and dorsal venous complex developed to expose the anterior urethral surface. The anterior wall of the urethra was transected with the cut setting a few millimeters distal to the apex of the prostate. The dorsal vein was ligated using 3-0 V lock The urethrovesical anastomosis was performed . the posterior denovillers was reapproximated using 3-0 V lock. A 9 and 6 inch 3-0 V-Lock suture was used to anastomose the urethra and bladder, starting at the 6:00 posterior position. Mucosa was secured in every stitch, to ensure a mucosa to mucosa anastomosis. The stitch was regularly cinched and the anastomosis tightened. Care was taken to not violate the ureteral orifices. The Ramirez catheter was advanced, the bladder filled, and the anastomosis was tested, as described above. Anastomsis was watertight at 150 mL The periumbilical fascia was closed with 1-0-PDS suture in running fashion. All ports were closed with a subcuticular 4-0 monocryl and Dermabond. Sponge, instrument, and needle counts were correct at the end of the case x2. All specimens including prostate was sent to pathology for diagnosis and will be available in a week. The patient tolerated the surgery well and without complication. He awoke without difficulty and was taken to the recovery room in stable condition
[2022-04-22] MEDS: KETOROLAC 15 MG/ML 1 ML VIAL IVP SCH ×2 (18:21)
[2022-04-22] MEDS: LACTATED RINGERS 1,000 ML IV SCH (18:26)
[2022-04-22] MEDS: HEPARIN SODIUM,PORCINE/PF 5,000 UNIT/0.5 ML SYRINGE SQ SCH (18:27)
[2022-04-22] MEDS: D5-0.45% NACL WITH KCL 20MEQ/L 1,000 ML IV SCH (19:42)
[2022-04-22] MEDS ORDERED: ATORVASTATIN 40 MG TAB PO SCH (21:00)
[2022-04-22] MEDS ORDERED: amLODIPine 10 MG TAB PO SCH (21:00)
[2022-04-23] MEDS: HEPARIN SODIUM,PORCINE/PF 5,000 UNIT/0.5 ML SYRINGE SQ SCH ×2 (00:45→08:30)
[2022-04-23] MEDS: KETOROLAC 15 MG/ML 1 ML VIAL IVP SCH ×3 (00:45→11:43)
[2022-04-23] MEDS: D5-0.45% NACL WITH KCL 20MEQ/L 1,000 ML IV SCH ×2 (02:39→08:30)
[2022-04-23 04:48] VITALS: TEMP 98.1
[2022-04-23] MEDS: LACTATED RINGERS 1,000 ML IV SCH (08:34)
[2022-04-23 08:42] VITALS: BP 131/70; PULSE 74; RESP 20
--- NOTE | 2022-04-23 08:57 | P.DS ---
Providers Expected date of discharge: 04/23/22 Attending physician: Nathanael Hines MD Primary care physician: [facility] Course: The patient is a 66-year-old male history of [place] 7 (3+4) prostate cancer. He elected to undergo a robotic-assisted laparoscopic radical prostatectomy with Dr. Hines on 04/22/22. The patient tolerated the surgery well and without complication. He was then taken to the recovery room in stable condition. POD #1 the patient is afebrile, vital signs are stable, and he is on room air. Pain is well controlled and he denies any nausea or vomiting. He is tolerating a regular diet. The patient has been up out of bed and ambulating in his room. Laparoscopic incisions are clean dry and intact. His Bejarano catheter is draining clear yellow urine. He is discharged home with a Bejarano catheter that will be removed during his follow-up visit with Dr. Hines on 05/03/21. Prescriptions for Cipro and Toradol were sent to his pharmacy. The patient was instructed to begin taking his antibiotic one day prior to Bejarano catheter removal. Impression and plan of care have been directed as dictated by the signing physician. Karrie Joseph nurse practitioner acting as scribe for signing physician. Karrie Joseph [facility] Palliative Care/Urology [place] [id number] Email: [email or web address] Patient Condition at Discharge: Good Plan - Discharge Summary Discharge Rx Participant: No New Discharge Prescriptions: New Ciprofloxacin HCl [Cipro] 250 mg PO Q12H #6 tab Ketorolac [Toradol] 10 mg PO Q6HR PRN #10 tab PRN Reason: Pain Continue amLODIPine BESYLATE [Norvasc] 10 mg PO HS Vitamin B Complex 1 each PO DAILY hydroCHLOROthiazide 12.5 mg PO DAILY Querstin 1 tab PO DAILY Losartan [Cozaar] 25 mg PO DAILY Rosuvastatin Calcium 20 mg PO HS Cholecalciferol (Vitamin D3) [Vitamin D3 (125 MCG = 5,000 IU)] 1 tab PO DAILY Discharge Medication List amLODIPine BESYLATE [Norvasc] 10 mg PO HS 02/28/16 [History] Vitamin B Complex 1 each PO DAILY 03/31/19 [History] Cholecalciferol (Vitamin D3) [Vitamin D3 (125 MCG = 5,000 IU)] 1 tab PO DAILY 04/17/22 [History] Losartan [Cozaar] 25 mg PO DAILY 04/17/22 [History] Querstin 1 tab PO DAILY 04/17/22 [History] Rosuvastatin Calcium 20 mg PO HS 04/17/22 [History] hydroCHLOROthiazide 12.5 mg PO DAILY 04/17/22 [History] Ciprofloxacin HCl [Cipro] 250 mg PO Q12H #6 tab 04/23/22 [Rx] Ketorolac [Toradol] 10 mg PO Q6HR PRN #10 tab 04/23/22 [Rx] Follow up Appointment(s)/Referral(s): Nathanael Hines MD [STAFF PHYSICIAN] - 05/03/22 10:20 am Patient Instructions/Handouts: Ciprofloxacin (By mouth), Ketorolac (By mouth), Bejarano Catheter Placement and Care (DC), Urinary Leg Bag (GEN), Robot Assisted Laparoscopic Prostatectomy (DC) Activity/Diet/Wound Care/Special Instructions: - Discharge home with Bejarano catheter. Instruct how to use with overnight drainage bag as well as urinary leg bag - Bejarano catheter will be removed in the office in approximately 10 days - Begin taking antibiotic one day prior to Bejarano catheter removal - Okay to shower, no tub baths - No lifting, driving, or strenuous activity - Reassure patient the abdominal wall ecchymosis and penoscrotal swelling are normal Discharge Disposition: HOME SELF-CARE
[2022-04-23] MEDS ORDERED: LOSARTAN 25 MG TAB PO SCH (09:00)
[2022-04-23] MEDS ORDERED: hydroCHLOROthiazide 12.5 MG CAP PO SCH (09:00)
== END 2022-04-23 11:50 | disposition home or self-care (01) ==
LOC: OR 09:31 → 6NMEDSUR 16:49 → OR 04-23 11:50
PROVIDERS: ATTEND Urology
DX: C61 Malignant neoplasm of prostate (principal); G89.18 Other acute postprocedural pain; I10 Essential (primary) hypertension; E78.5 Hyperlipidemia, unspecified; Z85.828 Personal history of other malignant neoplasm of skin; Z96.82 Presence of neurostimulator; Z96.653 Presence of artificial knee joint, bilateral; H91.90 Unspecified hearing loss, unspecified ear; Z87.891 Personal history of nicotine dependence; Z80.3 Family history of malignant neoplasm of breast; Z80.1 Family history of malignant neoplasm of trachea, bronchus and lung; Z84.0 Family history of diseases of the skin and subcutaneous tissue; Z86.79 Personal history of other diseases of the circulatory system; Z98.890 Other specified postprocedural states; Z88.6 Allergy status to analgesic agent; Z79.02 Long term (current) use of antithrombotics/antiplatelets; Z79.811 Long term (current) use of aromatase inhibitors; Z79.899 Other long term (current) drug therapy
CPT/HCPCS: 64461; 86900; 86901; 86850; 55866; 64999; 76942; J2250; J0330; J1100; J2710; J0690; J2405; J3010; J1170 ×2; J2795; J1885 ×2; J2370; J2704; J1644; J2001

== ENCOUNTER 2023-02-24 11:11 | Observation (INO) | payer MEDICARE ==
--- NOTE | 2023-02-24 11:36 | ED ---
Chest Pain HPI - General Source: patient, RN notes reviewed Mode of arrival: ambulatory Limitations: no limitations <TarikwesVenancio Clarke - Last Filed: 02/24/23 11:35> <Ame Gifford - Last Filed: 02/24/23 16:43> - General Chief Complaint: Chest Pain Stated Complaint: Tachy Time Seen by Provider: 02/24/23 11:35 - History of Present Illness Initial Comments: 67-year-old male presents emergency Department with chief complaint of chest pain, palpitations. Patient states that he has some onset of chest pain and felt states he states he felt like his heart was pounding he states he does have known valvular issue. Patient states he feels slightly better but does not feel well he states this feels very fatigued. Patient did have epidural injections of his neck on Friday. Patient has a history of hypertension sees Dr. Hsu. Patient denies any URI symptoms denies fever, shortness breath. (Venancio Vargas) 67-year-old male with past medical history of valvular disease presents to the emergency department with rapid onset of chest pain, palpitations and dizziness. He states he was at home when he had sudden onset of the symptoms and called his to bring him to the emergency department. He did feel nauseated as if he was given a pass out. He states the pain in his chest was a pressure sensation without radiation. He checked his blood pressure and it was markedly high at home. He does have a history of high blood pressure however states he did take his medications today. He has no history of coronary disease. Follows with Dr. Hsu. Last heart cath was 3 years ago. Chest pain spontaneous a result before getting to the emergency department however he reports that his sensation of being off balance continues. No history of stroke. Admits to headache. No visual changes. No other alleviating, precipitating modifying factors (Ame Gifford) - Related Data Home Medications Medication Instructions Recorded Confirmed amLODIPine BESYLATE [Norvasc] 10 mg PO HS 02/28/16 04/22/22 Vitamin B Complex 1 each PO DAILY 03/31/19 04/22/22 Cholecalciferol (Vitamin D3) 1 tab PO DAILY 04/17/22 04/22/22 [Vitamin D3 (125 MCG = 5,000 IU)] Losartan [Cozaar] 25 mg PO DAILY 04/17/22 04/22/22 Querstin 1 tab PO DAILY 04/17/22 04/22/22 Rosuvastatin Calcium 20 mg PO HS 04/17/22 04/22/22 hydroCHLOROthiazide 12.5 mg PO DAILY 04/17/22 04/22/22 Previous Rx's Medication Instructions Recorded Ciprofloxacin HCl [Cipro] 250 mg PO Q12H #6 tab 04/23/22 Ketorolac [Toradol] 10 mg PO Q6HR PRN #10 tab 04/23/22 Allergies Allergy/AdvReac Type Severity Reaction Status Date / Time diclofenac [From Cataflam] Allergy Nausea & Verified 02/24/23 11:26 Vomiting Review of Systems ROS Other: All systems not noted in ROS Statement are negative. <Venancio Vargas - Last Filed: 02/24/23 11:35> ROS Other: All systems not noted in ROS Statement are negative. <Ame Gifford - Last Filed: 02/24/23 16:43> ROS Statement: Those systems with pertinent positive or pertinent negative responses have been documented in the HPI. Past Medical History Past Medical History: Hyperlipidemia, Hypertension Additional Past Medical History / Comment(s): "MINOR LEAKY HEART VALVE", SKIN CANCER ," HAS A NEURO STIMULATOR IMPLANTED IN BACK", History of Any Multi-Drug Resistant Organisms: None Reported Past Surgical History: Prostate Surgery Additional Past Surgical History / Comment(s): rt total knee x 2, SPINAL CORD STIMULATOR , arthroscopy rt knee Past Anesthesia/Blood Transfusion Reactions: No Reported Reaction Past Psychological History: No Psychological Hx Reported Smoking Status: Never smoker Past Alcohol Use History: Occasional Past Drug Use History: None Reported - Past Family History Mother Family Medical History: Cancer Additional Family Medical History / Comment(s): BREAST CANCER Father Family Medical History: Cancer Additional Family Medical History / Comment(s): throat. Brother(s) Family Medical History: Cancer Additional Family Medical History / Comment(s): facial Sister(s) Family Medical History: Cancer Additional Family Medical History / Comment(s): BREAST CANCER <Venancio Vargas - Last Filed: 02/24/23 11:35> General Exam Limitations: no limitations <Venancio Vargas - Last Filed: 02/24/23 11:35> - General Exam Comments Initial Comments: Visual Physical Exam Vital signs reviewed General: Well-appearing, nontoxic, no acute distress. Head: Normocephalic, atraumatic Eyes: PERRLA, EOMI ENT: Airway patent Chest: Nonlabored breathing Skin: No visual rash, normal skin tone Neuro: Alert and oriented 3 Musculoskeletal: No gross abnormalities (Venancio Vargas) Course Vital Signs 02/24/23 02/24/23 02/24/23 11:24 14:00 16:24 Temperature 98 F 97.4 F L Pulse Rate 118 H 96 80 Respiratory 18 18 18 Rate Blood Pressure 170/83 153/82 123/77 O2 Sat by Pulse 97 98 98 Oximetry Chest Pain MDM <Venancio Vargas - Last Filed: 02/24/23 11:35> <Ame Gifford - Last Filed: 02/24/23 16:43> - MDM I performed a quick note portion of this chart signed Venancio Vargas PA-C (Venancio Vargas) Was pt. sent in by a medical professional or institution ([facility]ONARD Martines, [employer], urgent care, hospital, or detention...) When possible be specific @ -[No] Did you speak to anyone other than the patient for history (EMS, parent, family, police, friend...)? What history was obtained from this source @ -[No] Did you review nursing and triage notes (agree or disagree)? Why? @ -[I reviewed and agree with nursing and triage notes] Were old charts reviewed (outside hosp., previous admission, EMS record, old EKG, old radiological studies, urgent care reports/EKG's, detention records)? Report findings @ -[No old charts were reviewed] Differential Diagnosis (chest pain, altered mental status, abdominal pain women, abdominal pain men, vaginal bleeding, weakness, fever, dyspnea, syncope, headache, dizziness, GI bleed, back pain, seizure, CVA, palpatations, mental health, musculoskeletal)? @ -[not applicable] EKG interpreted by me (3pts min.). @ -Yes and demonstrates sinus tachycardia with a rate of 110. TN interval 185. QRS 138. QTC of 400. Right bundle branch block. No acute ST segment elevations X-rays interpreted by me (1pt min.). @ -[None done] CT interpreted by me (1pt min.). @ -[None done] U/S interpreted by me (1pt. min.). @ -[None done] What testing was considered but not performed or refused? (CT, X-rays, U/S, labs)? Why? @ -[None] What meds were considered but not given or refused? Why? @ -[None] Did you discuss the management of the patient with other professionals (professionals i.e. Dr., PA, [employer], lab, RT, psych nurse, psychosocial rehabilitation counselor, snow remover, teacher, project officer, residential case manager)? Give summary @ -[No] Was smoking cessation discussed for >3mins.? @ -[No] Was critical care preformed (if so, how long)? @ -[No] Were there social determinants of health that impacted care today? How? (Homelessness, low income, unemployed, alcoholism, drug addiction, transportation, low edu. Level, literacy, decrease access to med. care, nursing home, rehab)? @ -[No] Was there de-escalation of care discussed even if they declined (Discuss DNR or withdrawal of care, Hospice)? DNR status @ -[No] What co-morbidities impacted this encounter? (DM, HTN, Smoking, COPD, CAD, Cancer, CVA, ARF, Chemo, Hep., AIDS, mental health diagnosis, sleep apnea, morbid obesity)? @ -[None] Was patient admitted / discharged? Hospital course, mention meds given and route, prescriptions, significant lab abnormalities, going to OR and other pertinent info. @ -[hospital course] Undiagnosed new problem with uncertain prognosis? @ -[No] Drug Therapy requiring intensive monitoring for toxicity (Heparin, Nitro, Insulin, Cardizem)? @ -[No] Were any procedures done? @ -[No] Diagnosis/symptom? @ -[default] Acute, or Chronic, or Acute on Chronic? @ -[default] Uncomplicated (without systemic symptoms) or Complicated (systemic symptoms)? @ -[default] Side effects of treatment? @ -[No] Exacerbation, Progression, or Severe Exacerbation? @ -[No] Poses a threat to life or bodily function? How? (Chest pain, [place], [place], pneumonia, PE, COPD, DKA, ARF, appy, cholecystitis, CVA, Diverticulitis, Homicidal, Suicidal, threat to staff... and all critical care pts) @ -[No] (Ame Gifford) Disposition <Venancio Vargas - Last Filed: 02/24/23 11:35> Is patient prescribed a controlled substance at d/c from ED?: No Time of Disposition: 16:42 Decision to Admit Reason: Admit from EC Decision Date: 02/24/23 Decision Time: 16:42 <Ame Gifford - Last Filed: 02/24/23 16:43> Clinical Impression: Chest pain, Vertigo Disposition: ADMITTED IP TO THIS HOSP Condition: Stable Referrals: Leny Torres DO [Primary Care Provider] - 1-2 days
[2023-02-24 11:51] LABS: Basophils # (A) 0.1 k/uL (0-0.2); Basophils % (A) 0 %; Eosinophils # (A) 0.3 k/uL (0-0.7); Eosinophils % (A) 2 %; HCT 48.6 % (39.0-53.0); Lymphocytes # (A) 1.7 k/uL (1.0-4.8); Lymphocytes % (A) 15 %; MCH 32.1 pg (25.0-35.0); MCV 91.5 fL (80.0-100.0); Mean Platelet Volume 7.5; Monocytes # (A) 0.8 k/uL (0-1.0); Monocytes % (A) 7 %; Neutrophils # (A) 8.5 k/uL (1.3-7.7); Neutrophils % (A) 74 %; Platelet Count 251 k/uL (150-450); RBC 5.31 m/uL (4.30-5.90); RDW 12.5 % (11.5-15.5); WBC 11.5 k/uL (3.8-10.6)
--- NOTE | 2023-02-24 11:57 | XR ---
EXAMINATION TYPE: XR chest 2V DATE OF EXAM: 02/24/2023 11:54 AM COMPARISON: Chest radiographs from 04/10/2022 TECHNIQUE: XR chest 2V Frontal and lateral views of the chest. CLINICAL INDICATION:Male, 67 years old with history of Chest Pain; FINDINGS: Lungs/Pleura: There is no evidence of pleural effusion, focal consolidation, or pneumothorax. Pulmonary vascularity: Unremarkable. Heart/mediastinum: Cardiomediastinal silhouette is unremarkable. Atherosclerotic calcifications are seen in the aorta. Musculoskeletal: No acute osseous pathology. Thoracic spinal stimulator leads IMPRESSION: No acute cardiopulmonary disease/process.
[2023-02-24 12:04] LABS: Anion Gap 14 mmol/L; Blood Urea Nitrogen 19 mg/dL (9-20); Carbon Dioxide 21 mmol/L (22-30); Chloride 105 mmol/L (98-107); Glucose 177 mg/dL (74-99); Potassium 3.9 mmol/L (3.5-5.1); Sodium 140 mmol/L (137-145)
[2023-02-24 12:05] LABS: ALT 51 U/L (4-49); AST 34 U/L (17-59); African American GFR (CKD) >90 (>60 ml/min/1.73 sqM); Albumin 4.8 g/dL (3.5-5.0); Alkaline Phosphatase 55 U/L (38-126); Calcium 10.1 mg/dL (8.4-10.2); Magnesium 1.8 mg/dL (1.6-2.3); Non-African American GFR(CKD) >90 (>60 ml/min/1.73 sqM); Total Bilirubin 0.8 mg/dL (0.2-1.3)
[2023-02-24 12:12] LABS: NT-Pro-B-Type Natriuretic Pept 70 pg/mL
[2023-02-24 12:14] LABS: INR 0.9 (<1.2); Partial Thromboplastin Time 22.2 sec (22.0-30.0); Prothrombin Time 10.4 sec (10.0-12.5)
[2023-02-24] MEDS ORDERED: MECLIZINE 12.5 MG TAB PO STA (14:49)
[2023-02-24] MEDS ORDERED: SODIUM CHLORIDE 0.9% 1,000 ML IV ONE (14:50)
--- NOTE | 2023-02-24 16:21 | CT ---
EXAMINATION TYPE: CT brain wo con CT DLP: 1177.6 mGycm, Automated exposure control for dose reduction was used. DATE OF EXAM: 02/24/2023 4:12 PM COMPARISON: None. CLINICAL INDICATION:Male, 67 years old with history of dizziness, Tachy and Dizziness since cervical epidural injection Friday. TECHNIQUE: Brain: Multiple axial CT images of the brain were obtained without IV contrast. Coronal and sagittal reformats reviewed. FINDINGS: Brain: Extra-axial spaces: No abnormal extra-axial fluid collections. Ventricular system: Within normal limits Cerebral parenchyma: No acute intraparenchymal hemorrhage or mass effect. The romero-white junction is well differentiated. Cerebellum: Unremarkable. Mass effect: No evidence of midline shift. Intracranial vasculature: Atherosclerotic calcifications of the intracranial vessels. Soft tissues: Normal. Calvarium/osseous structures: No depressed skull fracture. Paranasal sinuses and mastoid air cells: The air cells are clear. Minimal mucosal thickening of the r ight maxilla sinus. Visualized orbits: Orbital contents are intact. IMPRESSION: No acute intracranial process.
--- NOTE | 2023-02-24 16:28 | CT ---
EXAMINATION TYPE: CT angio head neck CT DLP: 599.2 mGycm, Automated exposure control for dose reduction was used. DATE OF EXAM: 02/24/2023 4:23 PM COMPARISON: CT head same day. CLINICAL INDICATION:Male, 67 years old with history of dizzy, s/p epidural injection; PHH, Tachy and Dizziness since cervical epidural injection Friday. TECHNIQUE: Axially acquired helical CT angiogram of the head and neck was obtained with contrast. Axi al images are supplemented with 3D reconstructions [facility] NASCET criteria used. Contrast used:65 mL of Isovue 370 with IV Contrast, Oral contrast used: None. FINDINGS: CTA HEAD: No evidence of acute intracranial hemorrhage, mass effect, or midline shift. The ventricles, sulci, a nd cisterns are unremarkable. The visualized portions of the internal carotid arteries, middle cerebral arteries, anterior cerebral arteries, and posterior cerebral arteries are patent. Atherosclerosis of the carotid siphons bilater ally. The basilar and vertebral arteries are patent. CTA NECK: Right Carotid System: The common carotid artery and external carotid artery are patent. The carotid bifurcation demonstrate s no evidence of hemodynamically significant stenosis. The remaining portions of the internal carotid artery demonstrate normal size without significant narrowing. Left Carotid System: The common carotid artery and external carotid artery are patent. The carotid bifurcation demonstrate s no evidence of hemodynamically significant stenosis. The remaining portions of the internal carotid artery demonstrate normal size without significant narrowing. Vertebral arteries are patent without evidence hemodynamically significant stenosis. There is a 2 vessel aortic arch. The origins of the great vessels are patent. No evidence of hemodyna mically significant stenosis. Right thyroid gland 6 mm nodule.: IMPRESSION: 1. No evidence of dissection of the cervical internal carotid arteries or vertebral arteries or any e vidence of significant stenosis at the carotid bifurcations. 2. No evidence of intracranial high-grade stenosis or intracranial aneurysm.
[2023-02-24] MEDS ORDERED: ASPIRIN 81 MG PO STA (16:43)
[2023-02-24] MEDS ORDERED: NALOXONE 0.4 MG/ML 1 ML VIAL IV PRN (16:44)
[2023-02-24] MEDS ORDERED: IBUPROFEN 800 MG TAB PO PRN (20:17)
[2023-02-25] MEDS: amLODIPine 10 MG TAB PO SCH (08:38)
[2023-02-25] MEDS: ATORVASTATIN 40 MG TAB PO SCH (08:38)
[2023-02-25] MEDS ORDERED: hydroCHLOROthiazide 12.5 MG CAP PO SCH (09:00)
[2023-02-25 09:42] LABS: Basophils % (A) 0 %; Eosinophils # (A) 0.2 k/uL (0-0.7); Eosinophils % (A) 3 %; HCT 42.2 % (39.0-53.0); HGB 14.9 gm/dL (13.0-17.5); Lymphocytes # (A) 1.4 k/uL (1.0-4.8); Lymphocytes % (A) 21 %; MCH 31.9 pg (25.0-35.0); MCHC 35.2 g/dL (31.0-37.0); MCV 90.6 fL (80.0-100.0); Mean Platelet Volume 7.8; Monocytes # (A) 0.4 k/uL (0-1.0); Monocytes % (A) 7 %; Neutrophils # (A) 4.4 k/uL (1.3-7.7); Neutrophils % (A) 67 %; Platelet Count 209 k/uL (150-450); RBC 4.65 m/uL (4.30-5.90); RDW 12.8 % (11.5-15.5); WBC 6.6 k/uL (3.8-10.6)
--- NOTE | 2023-02-25 09:53 | P.CRDCN ---
History of Present Illness Consult date: 02/25/23 Consult reason: chest pain History of present illness: History of present illness: This is a 67-year-old male patient of Dr. Hsu with past medical history of hypertension, dyslipidemia, valvular heart disease with aortic and mitral regurgitation. Patient states that he had sudden onset of dizziness and almost passed out yesterday. He checked his blood pressure at home and he kept getting an air message. He felt like the room was spinning and at the same time he had some tightening in his chest which he never had before. He also felt his heart was pounding and have shortness of breath. He sat down for about 5 minutes and symptoms resolved. He denies having any cough no fever or chills, no nausea or vomiting. Patient normally rides a bike every day and has had no episodes of chest pain. He also does pushups daily with no chest pain or other symptoms. Patient is seen today in the emergency center waiting for bed on the observation unit. He is status post 1 L of IV fluids and Antivert. EKG sinus tachycardia with right bundle branch block Chest x-ray: No acute process CT of the brain no acute process CTA of the head and neck no evidence of dissection, significant stenosis, no intracranial stenosis or intracranial aneurysm. Initial WBC 11.5 now CBC is unremarkable. INR 0.9. D-dimer 0.67. CO2 21 otherwise electrolytes and renal function are normal. Blood sugar 177. Troponin negative 3. ALT 51 otherwise liver function tests are normal. Magnesium 1.8. ProBNP 70. Home cardiac medications: Amlodipine 10 mg daily, hydrochlorothiazide 12.5 mg daily and losartan/hydrochlorothiazide 87673 milligrams daily, rosuvastatin 20 mg daily. Cardiac catheterization 2018 revealed normal coronary arteries Echocardiogram performed in the office 2020 revealed EF 55%. Moderate left ventricular hypertrophy. Mild aortic regurgitation. Mild tricuspid regurgitation. PA SP 39 mmHg. Lexiscan stress test performed 03/2022 revealed normal myocardial perfusion imaging. No evidence of stress-induced ischemia. Normal left ventricular systolic function. Review Of Systems: At the time of my evaluation: Constitutional: No fever, no chills. No weakness, fatigue or lethargy. EENT: No headache. No dizziness. Lungs: No shortness of breath, cough, no sputum production. No wheezing. Cardiovascular: No chest pain, no lower extremity edema. No palpitations. No paroxysmal nocturnal dyspnea. No orthopnea. No lightheadedness or dizziness. + near syncopal episode. Abdominal: No abdominal pain. No nausea, vomiting. No diarrhea. No constipation. No bloody or tarry stools. Genitourinary: No dysuria.. No urinary retention. Musculoskeletal: No myalgias. No muscle weakness, no frequent falls. Integumentary: No wounds. No rash. No unusual bruising. Neurologic: No aphasia. No facial droop. No change in mentation. Physical examination: Gen: This is a 67-year-old male resting on the ear stretch and appears to be comfortable and in no acute distress. VS: reviewed HEENT: Head is atraumatic, normocephalic. Pupils equal, round. Sclerae is anicteric. NECK: Supple. No JVD. . LUNGS: Clear to auscultation. No wheezes or rhonchi. No intercostal retractions. HEART: Regular rate and rhythm. Systolic murmur at the right upper sternal border. ABDOMEN: Soft No tenderness. EXTREMITIES: No pedal edema. No calf tenderness. NEUROLOGICAL: Patient is awake, alert and oriented x3. Assessment: Atypical chest pain, acute coronary syndrome ruled out Dizziness Hypertension Dyslipidemia Valvular heart disease with aortic and mitral regurgitation Plan: Resume patient's home cardiac medications Obtain 2-D echocardiogram and Doppler study to assess cardiac structure and function If echocardiogram is not significantly changed from previous, he is cleared for discharge home and may follow up with Dr. Hsu as scheduled on Friday. Thank you kindly for this consultation. Nurse practitioner note has been reviewed, I agree with documented findings and plan of care. Patient was seen and examined. Past Medical History Past Medical History: Hyperlipidemia, Hypertension Additional Past Medical History / Comment(s): "MINOR LEAKY HEART VALVE", SKIN CANCER ," HAS A NEURO STIMULATOR IMPLANTED IN BACK", History of Any Multi-Drug Resistant Organisms: None Reported Past Surgical History: Prostate Surgery Additional Past Surgical History / Comment(s): rt total knee x 2, SPINAL CORD STIMULATOR , arthroscopy rt knee Past Anesthesia/Blood Transfusion Reactions: No Reported Reaction Past Psychological History: No Psychological Hx Reported Smoking Status: Never smoker Past Alcohol Use History: Occasional Past Drug Use History: None Reported - Past Family History Mother Family Medical History: Cancer Additional Family Medical History / Comment(s): BREAST CANCER Father Family Medical History: Cancer Additional Family Medical History / Comment(s): throat. Brother(s) Family Medical History: Cancer Additional Family Medical History / Comment(s): facial Sister(s) Family Medical History: Cancer Additional Family Medical History / Comment(s): BREAST CANCER Medications and Allergies Home Medications Medication Instructions Recorded Confirmed Type amLODIPine BESYLATE [Norvasc] 10 mg PO DAILY 02/28/16 02/24/23 History Rosuvastatin Calcium 20 mg PO DAILY 04/17/22 02/24/23 History hydroCHLOROthiazide 12.5 mg PO DAILY 04/17/22 02/24/23 History Ibuprofen [Motrin] 800 mg PO Q8H PRN 02/24/23 02/24/23 History Losartan/Hydrochlorothiazide 1 tab PO DAILY 02/24/23 02/24/23 History [Hyzaar 100-25 Tablet] Allergies Allergy/AdvReac Type Severity Reaction Status Date / Time diclofenac [From Cataflam] Allergy Nausea & Verified 02/24/23 18:02 Vomiting Physical Exam Vitals: Vital Signs Temp Pulse Resp BP Pulse Ox 02/25/23 08:37 98.5 F 76 20 150/81 96 02/25/23 06:24 98.8 F 71 16 137/80 98 02/25/23 03:18 79 18 120/81 95 02/25/23 02:00 66 16 133/75 95 02/25/23 01:00 67 23 135/85 96 02/25/23 00:00 67 20 133/75 95 02/24/23 23:00 69 15 142/76 96 02/24/23 22:00 73 16 133/85 96 02/24/23 21:00 78 16 124/82 96 02/24/23 20:00 71 18 140/78 95 02/24/23 19:00 80 17 134/80 95 02/24/23 18:30 84 16 145/77 95 02/24/23 16:24 80 18 123/77 98 02/24/23 14:00 97.4 F L 96 18 153/82 98 02/24/23 11:24 98 F 118 H 18 170/83 97 Results 02/25/23 09:03 02/24/23 11:27 Cardiac Enzymes 10/30/23 10/30/23 10/30/23 Range/Units 11:27 11:27 18:01 AST 34 (17-59) U/L Troponin I <0.012 <0.012 (0.000-0.034) ng/mL 02/24/23 Range/Units 21:04 AST (17-59) U/L Troponin I <0.012 (0.000-0.034) ng/mL Coagulation 02/24/23 Range/Units 11:27 PT 10.4 (10.0-12.5) sec APTT 22.2 (22.0-30.0) sec CBC 02/24/23 Range/Units 11:27 WBC 11.5 H (3.8-10.6) k/uL RBC 5.31 (4.30-5.90) m/uL Hgb 17.0 (13.0-17.5) gm/dL Hct 48.6 (39.0-53.0) % Plt Count 251 (150-450) k/uL Comprehensive Metabolic Panel 02/24/23 Range/Units 11:27 Sodium 140 (137-145) mmol/L Potassium 3.9 (3.5-5.1) mmol/L Chloride 105 (98-107) mmol/L Carbon Dioxide 21 L (22-30) mmol/L BUN 19 (9-20) mg/dL Creatinine 0.64 L (0.66-1.25) mg/dL Glucose 177 H (74-99) mg/dL Calcium 10.1 (8.4-10.2) mg/dL AST 34 (17-59) U/L ALT 51 H (4-49) U/L Alkaline Phosphatase 55 (38-126) U/L Total Protein 8.0 (6.3-8.2) g/dL Albumin 4.8 (3.5-5.0) g/dL Current Medications Generic Name Dose Route Start Last Admin Trade Name Freq PRN Reason Stop Dose Admin Amlodipine Besylate 10 mg 02/25/23 09:00 02/25/23 08:38 Amlodipine 10 Mg Tab PO 10 mg DAILY GRACIELA Administration Atorvastatin Calcium 40 mg 02/25/23 09:00 02/25/23 08:38 Atorvastatin 40 Mg Tab PO 40 mg DAILY GRACIELA Administration Hydrochlorothiazide 12.5 mg 02/25/23 09:00 02/25/23 08:38 Hydrochlorothiazide 12.5 Mg Cap PO 12.5 mg DAILY GRACIELA Administration Ibuprofen 800 mg 02/24/23 20:17 Ibuprofen 800 Mg Tab PO Q8H PRN Pain Naloxone HCl 0.2 mg 02/24/23 16:44 Naloxone 0.4 Mg/Ml 1 Ml Vial IV Q2M PRN Opioid Reversal 02/24/23 11:27 02/24/23 11:27
--- NOTE | 2023-02-25 10:54 | CT ---
EXAMINATION TYPE: CT chest angio for PE DATE OF EXAM: 02/25/2023 COMPARISON: None HISTORY: 67-year-old male with shortness of breath, Dyspnea TECHNIQUE: Contiguous axial scanning of the chest performed with IV Contrast, patient injected with 1 00 ml mL of Isovue 370. Coronal/sagittal MIP reconstructions performed. CT DLP: 467.6 mGycm Automated exposure control for dose reduction was used. FINDINGS: Possible 1.3 cm right thyroid lobe nodule which may further assessed with dedicated thyroid ultrasoun d on an outpatient basis. Heart borderline enlarged without pericardial effusion. No reflux of contrast into the hepatic veins. Mild atherosclerotic arch calcifications. Bovine configuration to the aortic arch. No thoracic lymphadenopathy by CT size criteria. Satisfactory opacification of the pulmonary artery system. There is excessive breathing motion artifa ct which limits the evaluation for pulmonary emboli. No large central pulmonary embolus is seen. Many of the lobar, segmental, and more distal arterial branches are nondiagnostic due to the patient's br eathing through the skin. The degree of breathing motion limits assessment for small pulmonary nodules. Some strandy atelectasi s suggested at the right middle lobe. No consolidation or pleural effusion. Visualized upper abdomen shows no gross abnormality. Bones: Spinal stimulator array centered along the lower thoracic spinal canal. Laminectomy change low er thoracic spine. IMPRESSION: 1. THE PATIENT WAS BREATHING THROUGH THE SCAN, DEGRADING ASSESSMENT. NO LARGE CENTRAL PULMONARY EMBOL US IS SEEN. MANY OF THE LOBAR, SEGMENTAL, AND MORE DISTAL ARTERIAL BRANCHES ARE VERY LIMITED TO NONDI AGNOSTIC AND EMBOLI IN THESE LOCATIONS CANNOT BE ADEQUATELY EXCLUDED ON THE BASIS OF THIS EXAM. 2. A 1.3 cm right thyroid lobe nodule. Outpatient thyroid ultrasound to further evaluate.
[2023-02-25] MEDS: LOSARTAN 50 MG TAB PO SCH (13:01)
--- NOTE | 2023-02-25 13:13 | P.HPIM ---
History of Present Illness H&P Date: 02/25/23 History of present illness; patient is 67-year-old gentleman with past medical h istory significant for hypertension, hyperlipidemia who presented to the hospital for sudden onset of chest pain. Patient stated that he was all right when at home he started noticing sudden onset of chest pain which was central in location, pressure-like, nonradiating, no aggravating or relieving factors associated chest pain, she also started noticing palpitations at the time. Patient was also very dizzy and was complaining of being off balance. Patient also complaining of lethargy and weakness. There was no fever or chills. Patient was complain of nausea at the time, no vomiting or abdominal pain. Patient called his to bring him to the ER. Patient also found to be elevated blood pressure at the time. Initial lab work done in the ER showed WBC 11.5, hemoglobin 17, platelet count 251, sodium 140, potassium 3.9, carbon is a 21, BUN 19, creatinine 0.64, troponin 0.012 EKG done in the ER heart rate of 110, no ST segment elevations in, T-wave inversions seen in lead V1 and V2 and V3 CTA head and neck done showed no evidence of dissection of the cervical internal carotid arteries or vertebral arteries or any evidence of sufficient stenosis at the carotid bifurcation Chest x-ray done in the ER showed no acute cardiopulmonary process CT brain done negative for any acute cranial process Patient admitted to medicine service REVIEW OF SYSTEMS: CONSTITUTIONAL: No fever, no malaise, no fatigue. HEENT: No recent visual problems or hearing problems. Denied any sore throat. CARDIOVASCULAR: As mentioned above PULMONARY: No shortness of breath, no cough, no hemoptysis. GASTROINTESTINAL: No diarrhea, no nausea, no vomiting, no abdominal pain. NEUROLOGICAL: No headaches, no weakness, no numbness. Complaining of dizziness HEMATOLOGICAL: Denies any bleeding or petechiae. GENITOURINARY: Denies any burning micturition, frequency, or urgency. MUSCULOSKELETAL/RHEUMATOLOGICAL: Denies any joint pain, swelling, or any muscle pain. ENDOCRINE: Denies any polyuria or polydipsia. The rest of the 14-point review of systems is negative. PHYSICAL EXAMINATION: GENERAL: The patient is alert and oriented x3, not in any acute distress. Well developed, well nourished. HEENT: Pupils are round and equally reacting to light. EOMI. No scleral icterus. No conjunctival pallor. Normocephalic, atraumatic. No pharyngeal erythema. No thyromegaly. CARDIOVASCULAR: S1 and S2 present. No murmurs, rubs, or gallops. PULMONARY: Chest is clear to auscultation, no wheezing or crackles. ABDOMEN: Soft, nontender, nondistended, normoactive bowel sounds. No palpable organomegaly. MUSCULOSKELETAL: No joint swelling or deformity. EXTREMITIES: No cyanosis, clubbing, or pedal edema. NEUROLOGICAL: Gross neurological examination did not reveal any focal deficits. SKIN: No rashes. Assessment and plan Chest pain Dizziness Hypertensive emergency Hyperlipidemia Monitor vital signs Monitor CBC Monitor CMP Continue telemetry monitoring Trend troponins. D-dimer was elevated, will order CT chest with contrast Resume blood pressure medications Resume antiepileptics. Consult cardiology Consult neurology Labs and medication were reviewed.. Continue same treatment. Continue with symptomatic treatment. Resume home medication. Monitor labs and vitals. DVT and GI prophylaxis. Further recommendations as per clinical course of the patient Dictation was produced using [employer] dictation software. please excuse any grammatical, word or spelling errors. Past Medical History Past Medical History: Hyperlipidemia, Hypertension Additional Past Medical History / Comment(s): "MINOR LEAKY HEART VALVE", SKIN CANCER ," HAS A NEURO STIMULATOR IMPLANTED IN BACK", History of Any Multi-Drug Resistant Organisms: None Reported Past Surgical History: Prostate Surgery Additional Past Surgical History / Comment(s): rt total knee x 2, SPINAL CORD STIMULATOR , arthroscopy rt knee Past Anesthesia/Blood Transfusion Reactions: No Reported Reaction Past Psychological History: No Psychological Hx Reported Smoking Status: Never smoker Past Alcohol Use History: Occasional Past Drug Use History: None Reported - Past Family History Mother Family Medical History: Cancer Additional Family Medical History / Comment(s): BREAST CANCER Father Family Medical History: Cancer Additional Family Medical History / Comment(s): throat. Brother(s) Family Medical History: Cancer Additional Family Medical History / Comment(s): facial Sister(s) Family Medical History: Cancer Additional Family Medical History / Comment(s): BREAST CANCER Medications and Allergies Home Medications Medication Instructions Recorded Confirmed Type amLODIPine BESYLATE [Norvasc] 10 mg PO DAILY 02/28/16 02/24/23 History Rosuvastatin Calcium 20 mg PO DAILY 04/17/22 02/24/23 History hydroCHLOROthiazide 12.5 mg PO DAILY 04/17/22 02/24/23 History Ibuprofen [Motrin] 800 mg PO Q8H PRN 02/24/23 02/24/23 History Losartan/Hydrochlorothiazide 1 tab PO DAILY 02/24/23 02/24/23 History [Hyzaar 100-25 Tablet] Allergies Allergy/AdvReac Type Severity Reaction Status Date / Time diclofenac [From Cataflam] Allergy Nausea & Verified 02/24/23 18:02 Vomiting Physical Exam Vitals: Vital Signs Temp Pulse Resp BP Pulse Ox 02/25/23 08:37 98.5 F 76 20 150/81 96 02/25/23 06:24 98.8 F 71 16 137/80 98 02/25/23 03:18 79 18 120/81 95 02/25/23 02:00 66 16 133/75 95 02/25/23 01:00 67 23 135/85 96 02/25/23 00:00 67 20 133/75 95 02/24/23 23:00 69 15 142/76 96 02/24/23 22:00 73 16 133/85 96 02/24/23 21:00 78 16 124/82 96 02/24/23 20:00 71 18 140/78 95 02/24/23 19:00 80 17 134/80 95 02/24/23 18:30 84 16 145/77 95 02/24/23 16:24 80 18 123/77 98 02/24/23 14:00 97.4 F L 96 18 153/82 98 02/24/23 11:24 98 F 118 H 18 170/83 97 Results CBC & Chem 7: 02/24/23 11:27 02/24/23 11:27 Labs: Abnormal Lab Results - Last 24 Hours (Table) 02/24/23 02/24/23 02/24/23 Range/Units 11:27 11:27 11:27 WBC 11.5 H (3.8-10.6) k/uL Neutrophils # 8.5 H (1.3-7.7) k/uL D-Dimer 0.67 H (<0.60) mg/L FEU Carbon Dioxide 21 L (22-30) mmol/L Creatinine 0.64 L (0.66-1.25) mg/dL Glucose 177 H (74-99) mg/dL ALT 51 H (4-49) U/L
--- NOTE | 2023-02-25 15:23 | P.CNNES ---
History of Present Illness Consult date: 02/25/23 Requesting physician: Nj Robles Reason for Consult: Dizziness History of Present Illness: Patient is a 67-year-old ambidextrous male with history of hypertension, hyperlipidemia came to the hospital yesterday at 11:11 AM for episode of dizziness. Patient states that yesterday he was working around the house. He went out to the barn, and did his work. When he came inside, all of a sudden he noticed dizziness, which he describes as lightheadedness, no vertigo. He felt chest tightness like as if his heart will blow out of chest. He wanted to sit and felt as if he would fall. His balance was off. He made it to the chair and sat down. He did not lose consciousness. He felt very shaky. There was no nausea or vomiting. The bdd symptoms lasted for about 5 minutes. He tried to check his blood pressure, which kept on saying "error". He called his and she brought him to the hospital. There was no associated focal symptoms like numbness, tingling, focal weakness, slurred speech, facial droop, any visual disturbance or diplopia. Patient states that his symptoms lasted for afternoon and was given meclizine and symptoms were gone by 4:30 PM. At present he feels perfectly fine. He denied any worsening of his hearing, any tinnitus, any upper respiratory infection, or pressure or pain in the ear. Patient states that on Friday, 3 days prior to arrival, he had undergone epidural injection to his neck for arthritis at [facility]. He has previously undergone radiofrequency ablation times twice in the first and it improved but the second time did not improve, therefore he has started epidural injections. He has chronic neck and low back pain. CT head showed no acute process. Chest x-ray showed no acute process. EKG shows sinus tachycardia with indeterminate axis. Right bundle-branch block. CTA of the chest showed patient was breathing throughout the scan, degrading ass essment. No large central pulmonary embolus is seen. Many of the lobar segmental and more distal arterial branches are very limited to nondiagnostic and emboli in these locations cannot be adequately excluded on the basis of this exam. A 1.3 cm right thyroid lobe nodule. Outpatient thyroid ultrasound to further evaluate. IM to address thyroid. Blood test shows normal hemoglobin WBC 11.5, which came now ex-0.6. PT/PTT normal, Chem-20 normal, ALT minimally elevated 51. Troponin negative. Patient denies ever having any episodes of dizziness or vertigo in the past. He does have complete hearing loss left ear after he had undergone knee surgery in 2019. Patient has history of hypertension but denies diabetes. He drinks couple beers. He has history of essential tremors for last 2 years, which seems to be worse in the last 1 year. He denies any tobacco use, any drugs or marijuana use. Patient takes amlodipine, hydrochlorothiazide, Crestor, Hyzaar and ibuprofen. Patient does not take any antiplatelet medication at home. Review of Systems Constitutional: Denies chills, Denies fever Eyes: denies blurred vision, denies diplopia, denies pain, denies loss of vision Ears: left: decreased hearing, deny: earache, tinnitus Ears, nose, mouth and throat: Reports headache (Head real bad headache yesterday lasted all day), Denies sore throat Cardiovascular: Reports chest pain, Reports shortness of breath Respiratory: Denies cough Gastrointestinal: Denies abdominal pain, Denies diarrhea, Denies nausea, Denies vomiting Genitourinary: Denies incontinence, Denies urinary frequency Musculoskeletal: Reports low back pain, Reports neck pain, Denies frequent falls, Denies myalgias Integumentary: Denies pruritus, Denies rash Neurological: Reports as per HPI Psychiatric: Denies anxiety, Denies depression Endocrine: Denies fatigue, Denies weight change Hematologic/Lymphatic: Denies easy bleeding, Denies easy bruising Past Medical History Past Medical History: Hyperlipidemia, Hypertension Additional Past Medical History / Comment(s): "MINOR LEAKY HEART VALVE", SKIN CANCER ," HAS A NEURO STIMULATOR IMPLANTED IN BACK", History of Any Multi-Drug Resistant Organisms: None Reported Past Surgical History: Prostate Surgery Additional Past Surgical History / Comment(s): rt total knee x 2, SPINAL CORD STIMULATOR , arthroscopy rt knee Past Anesthesia/Blood Transfusion Reactions: No Reported Reaction Past Psychological History: No Psychological Hx Reported Smoking Status: Never smoker Past Alcohol Use History: Occasional Past Drug Use History: None Reported - Past Family History Mother Family Medical History: Cancer Additional Family Medical History / Comment(s): BREAST CANCER Father Family Medical History: Cancer Additional Family Medical History / Comment(s): throat. Brother(s) Family Medical History: Cancer Additional Family Medical History / Comment(s): facial Sister(s) Family Medical History: Cancer Additional Family Medical History / Comment(s): BREAST CANCER Medications and Allergies Home Medications Medication Instructions Recorded Confirmed Type amLODIPine BESYLATE [Norvasc] 10 mg PO DAILY 02/28/16 02/24/23 History Rosuvastatin Calcium 20 mg PO DAILY 04/17/22 02/24/23 History hydroCHLOROthiazide 12.5 mg PO DAILY 04/17/22 02/24/23 History Ibuprofen [Motrin] 800 mg PO Q8H PRN 02/24/23 02/24/23 History Losartan/Hydrochlorothiazide 1 tab PO DAILY 02/24/23 02/24/23 History [Hyzaar 100-25 Tablet] Aspirin 81 mg PO DAILY 30 Days #30 tab 02/26/23 Rx Allergies Allergy/AdvReac Type Severity Reaction Status Date / Time diclofenac [From Cataflam] Allergy Nausea & Verified 02/24/23 18:02 Vomiting Physical Examination - Vital Signs Vital Signs: Vital Signs Temp Pulse Resp BP Pulse Ox 02/25/23 12:09 74 16 132/71 95 02/25/23 08:37 98.5 F 76 20 150/81 96 02/25/23 06:24 98.8 F 71 16 137/80 98 02/25/23 03:18 79 18 120/81 95 02/25/23 02:00 66 16 133/75 95 02/25/23 01:00 67 23 135/85 96 02/25/23 00:00 67 20 133/75 95 02/24/23 23:00 69 15 142/76 96 02/24/23 22:00 73 16 133/85 96 02/24/23 21:00 78 16 124/82 96 02/24/23 20:00 71 18 140/78 95 02/24/23 19:00 80 17 134/80 95 02/24/23 18:30 84 16 145/77 95 02/24/23 16:24 80 18 123/77 98 Patient is an elderly male, very pleasant, in no acute distress. Patient is alert awake oriented to time place and person. Speech and language functions are normal. Patient can name and repeat very well. No aphasia or dysarthria. Attention, concentration and fund of knowledge is adequate. On cranial nerve examination, pupils are equal, round and reacting to light, visual jeter are full on confrontation, with no neglect on double simultaneous stimulation. Extraocular muscles are intact with no nystagmus. Face is symmetric, tongue protrudes to the midline. Palatal elevation and sensation normal, hearing is almost absent in the left ear, and moderate to severely decreased for finger rubbing with the right ear, but he has good hearing for normal conversions. His shoulder shrug normal, facial sensation normal. Otologic examination revealed no excessive cerumen. On muscle strength testing, there is no pronator drift and the strength is normal in arms and legs distally and proximally. Deep tendon reflexes are symmetric 1+ in the biceps, 1+ brachioradialis, 2 at the knees and plantars downgoing. Sensory to touch is equal with no neglect on double simultaneous stimulation. Cerebellar function showed tremors for [id number] testing bilaterally but no ataxia. Patient has essential tremors. No dysdiadochokinesia. No ataxia for [id number] testing on either side. Tone and bulk of muscles normal. Gait deferred.. On general examination, there is no carotid bruit or murmur, S1-S2 audible. Chest is clear on consultation. Abdomen is soft nontender. No organomegaly, bowel sounds present. Peripheral pulses are present. No peripheral edema. Results - Laboratory Findings CBC and BMP: 02/25/23 09:03 02/25/23 09:03 Abnormal Lab Findings: Abnormal Labs 02/24/23 02/24/23 02/24/23 11:27 11:27 11:27 WBC 11.5 H Neutrophils # 8.5 H D-Dimer 0.67 H Carbon Dioxide 21 L Creatinine 0.64 L Glucose 177 H ALT 51 H Assessment and Plan Assessment: * Episode of dizziness/lightheadedness, that lasted for about 4 hours, and then subsided. There were no associated focal neurological symptoms with it. Differential includes TIA versus symptoms related to uncontrolled blood pressure or cardiac cause. * Hypertension * Hyperlipidemia * Chronic left ear deafness * Essential tremors * Chronic neck and back pain * Presence of a spinal cord stimulator Plan: * Patient had a possible TIA versus symptoms related to uncontrolled blood pressure. * Recommend optimize control of blood pressure. * Start aspirin 81 mg daily. Patient was given a loading dose of aspirin 324 mg in the ER yesterday. * 2-D echo with bubble study to rule out PFO * CTA head and neck showed: No evidence of dissection of the cervical internal carotid arteries or vertebral arteries or any evidence of significant stenosis at the carotid bifurcations. No evidence of intracranial high-grade stenosis or intracranial aneurysm. * Patient cannot have MRI because of presence of spinal cord stimulator. * Fasting a.m. lipid panel with cholesterol 130, LDL 66, HDL 39, triglycerides 124. Continue Crestor 20 mg daily. * Hemoglobin A1c 5.4 * Telemetry monitoring rule out any arrhythmia * Regarding chest pain, we will defer to internal medicine. Patient follows up with Dr. Garcia, has an appointment on Friday. * Neurologically clear for discharge with the above recommendations, if the 2-D echo comes back normal. * Thank you for the consult. Addendum: 2-D echo revealed normal left ventricular size and systolic function. EF is 60- 65%. Normal left ventricular wall motion. Normal left atrial size. No MR. No valvular disease. Neurologically clear.
[2023-02-25] MEDS: ASPIRIN 81 MG PO SCH (15:58)
[2023-02-25 16:03] LABS: BUN/Creat Ratio 15.38 Ratio (12.00-20.00); Blood Urea Nitrogen 12.3 mg/dL (9.0-27.0); Calcium 9.5 mg/dL (8.7-10.3); Carbon Dioxide 24.3 mmol/L (21.6-31.8); Chloride 105 mmol/L (96-109); Glucose 130 mg/dL (70-110); Potassium 4.1 mmol/L (3.5-5.5); Sodium 140 mmol/L (135-145)
--- NOTE | 2023-02-26 07:20 | CA ---
Transthoracic Echo Report Name: Candido Marina Age: 67 Gender: M : 1955 Exam Date: 02/25/2023 14:48 Exam Location: [facility] Ht (in): 71 Wt (lb): 228 Ordering Physician: Yoli Chatman Attending/Referring Phys: [id number], [employer] Sung Beaulieu Procedure CPT: Indications: LVF Cardiac Hx: Technical Quality: Fair Contrast 1: Total Dose (mL): Contrast 2: Total Dose (mL): MEASUREMENTS (Male / Female) Normal Values 2D ECHO LV Diastolic Diameter PLAX 3.7 cm 4.2 - 5.9 / 3.9 - 5.3 cm LV Systolic Diameter PLAX 2.4 cm IVS Diastolic Thickness 1.3 cm 0.6 - 1.0 / 0.6 - 0.9 cm LVPW Diastolic Thickness 1.3 cm 0.6 - 1.0 / 0.6 - 0.9 cm LV Relative Wall Thickness 0.7 RV Internal Dim ED PLAX 3.1 cm LVOT Diameter 2.3 cm Aortic Root Diameter 2.9 cm LA Systolic Diameter LX 1.8 cm 3.0 - 4.0 / 2.7 - 3.8 cm LV Diastolic Volume MOD 4C 94.1 cm??? LV Systolic Volume MOD 4C 49.7 cm??? LV Ejection Fraction MOD 4C 47.2 % LV Cardiac Index MOD 4C 1501.4 cm???/min???m??? LV Diastolic Length 4C 9.1 cm LV Systolic Length 4C 7.8 cm LA Volume 41.5 cm??? 18 - 58 / 22 - 52 cm??? LA Volume Index 18.0 cm???/m??? 16 - 28 cm???/m??? Ascending Aorta Diameter 3.1 cm DOPPLER AV Peak Velocity 175.5 cm/s AV Peak Gradient 12.3 mmHg LVOT Peak Velocity 131.9 cm/s LVOT Peak Gradient 7.0 mmHg LVOT Velocity Time Integral 24.9 cm LVOT Stroke Volume 103.3 cm??? LVOT Stroke Volume Index 46.3 ml/m??? LVOT Cardiac Index 3494.6 cm???/min???m??? AV Area Cont Eq pk 3.1 cm??? MR Peak Velocity 439.7 cm/s MR Peak Gradient 77.3 mmHg Mitral E Point Velocity 97.3 cm/s Mitral A Point Velocity 99.6 cm/s Mitral E to A Ratio 1.0 MV Deceleration Time 281.1 ms TR Peak Velocity 218.1 cm/s TR Peak Gradient 19.0 mmHg Right Ventricular Systolic Press 24.6 mmHg PV Peak Velocity 155.1 cm/s PV Peak Gradient 9.6 mmHg FINDINGS Left Ventricle Mildly increased septal wall thickness. Normal LV size. Left ventricular ejection fraction is estimated at 60-65 %.normal left ventricular wall motion. Right Ventricle Right ventricle not well visualized. Right Atrium Normal right atrial size. Left Atrium Normal left atrial size. Mitral Valve Structurally normal mitral valve. No mitral stenosis. No mitral regurgitation. Aortic Valve Aortic valve sclerosis . No aortic valve stenosis or regurgitation. Tricuspid Valve Tricuspid valve not well visualized. Mild TR. Pulmonic Valve Structurally normal pulmonic valve. No pulmonic regurgitation. Pericardium Not well visualized. Aorta Normal size aortic root. CONCLUSIONS Definity ECHO contrast used for improved visualization of the endocardial borders (inadequate visualization of two or more contiguous segments). 1. Normal left ventricular size and systolic function 2. Limited Doppler study with mild tricuspid regurgitation Previewed by: Dr. Gala Pollard MD (Electronically Signed) Final Date: 26 February 2023 07:20
[2023-02-26] MEDS: ASPIRIN 81 MG PO SCH (08:12)
[2023-02-26] MEDS: ATORVASTATIN 40 MG TAB PO SCH (08:13)
[2023-02-26] MEDS: LOSARTAN 50 MG TAB PO SCH (08:13)
[2023-02-26] MEDS: amLODIPine 10 MG TAB PO SCH (08:13)
[2023-02-26] MEDS ORDERED: hydroCHLOROthiazide 25 MG TAB PO SCH (09:00)
[2023-02-26 09:16] VITALS: BP 124/73; PULSE 70; RESP 17; TEMP 98.1
--- NOTE | 2023-02-26 09:48 | P.DS ---
Providers Date of admission: 02/24/23 16:44 Expected date of discharge: 02/26/23 Attending physician: Juan Francisco Lara Consults: 02/24/23 16:44 Consult Physician Urgent Consulting Provider: [facility] Consult Reason/Comments: acute chest pain Do you want consulting provider notified?: Yes 02/25/23 09:34 Consult Physician Routine Consulting Provider: Loren Garcia Consult Reason/Comments: Dizziness Do you want consulting provider notified?: Yes Primary care physician: Leny Torres Hospital Course: Discharge diagnoses; Chest pain resolved Dizziness resolved Hypertensive emergency Hyperlipidemia Hospital course; patient is 67-year-old gentleman with past medical history significant for hypertension, hyperlipidemia who presented to the hospital for sudden onset of chest pain. Patient stated that he was all right when at home he started noticing sudden onset of chest pain which was central in location, pressure- like, nonradiating, no aggravating or relieving factors associated chest pain, she also started noticing palpitations at the time. Patient was also very dizzy and was complaining of being off balance. Patient also complaining of lethargy and weakness. There was no fever or chills. Patient was complain of nausea at the time, no vomiting or abdominal pain. Patient called his to bring him to the ER. Patient also found to be elevated blood pressure at the time. Initial lab work done in the ER showed WBC 11.5, hemoglobin 17, platelet count 251, sodium 140, potassium 3.9, carbon is a 21, BUN 19, creatinine 0.64, troponin 0.012 EKG done in the ER heart rate of 110, no ST segment elevations in, T-wave inversions seen in lead V1 and V2 and V3 CTA head and neck done showed no evidence of dissection of the cervical internal carotid arteries or vertebral arteries or any evidence of sufficient stenosis at the carotid bifurcation Chest x-ray done in the ER showed no acute cardiopulmonary process CT brain done negative for any acute cranial process Patient admitted to medicine service 02/26. Patient seen and examined. Patient had CT chest with contrast done which was negative for PE, showed thyroid nodule, for This patient will need outpatient thyroid ultrasound. Cardiology evaluated the patient and recommended doing 2-D echo, 2-D echo did not show any wall motion abnormalities, cardiology cleared the patient discharged PHYSICAL EXAMINATION: GENERAL: The patient is alert and oriented x3, not in any acute distress. Well d eveloped, well nourished. HEENT: Pupils are round and equally reacting to light. EOMI. No scleral icterus. No conjunctival pallor. Normocephalic, atraumatic. No pharyngeal erythema. No thyromegaly. CARDIOVASCULAR: S1 and S2 present. No murmurs, rubs, or gallops. PULMONARY: Chest is clear to auscultation, no wheezing or crackles. ABDOMEN: Soft, nontender, nondistended, normoactive bowel sounds. No palpable organomegaly. MUSCULOSKELETAL: No joint swelling or deformity. EXTREMITIES: No cyanosis, clubbing, or pedal edema. NEUROLOGICAL: Gross neurological examination did not reveal any focal deficits. SKIN: No rashes. Dictation was produced using [employer] dictation software. please excuse any grammatical, word or spelling errors. Patient Condition at Discharge: Stable Plan - Discharge Summary New Discharge Prescriptions: New Aspirin 81 mg PO DAILY 30 Days #30 tab Continue amLODIPine BESYLATE [Norvasc] 10 mg PO DAILY hydroCHLOROthiazide 12.5 mg PO DAILY Losartan/Hydrochlorothiazide [Hyzaar 100-25 Tablet] 1 tab PO DAILY Rosuvastatin Calcium 20 mg PO DAILY Ibuprofen [Motrin] 800 mg PO Q8H PRN PRN Reason: Pain Discharge Medication List amLODIPine BESYLATE [Norvasc] 10 mg PO DAILY 02/28/16 [History] Rosuvastatin Calcium 20 mg PO DAILY 04/17/22 [History] hydroCHLOROthiazide 12.5 mg PO DAILY 04/17/22 [History] Ibuprofen [Motrin] 800 mg PO Q8H PRN 02/24/23 [History] Losartan/Hydrochlorothiazide [Hyzaar 100-25 Tablet] 1 tab PO DAILY 02/24/23 [History] Aspirin 81 mg PO DAILY 30 Days #30 tab 02/26/23 [Rx] Follow up Appointment(s)/Referral(s): Wilfrid Hsu MD [STAFF PHYSICIAN] - 1 Week Leny Torres DO [Primary Care Provider] - 1-2 days Activity/Diet/Wound Care/Special Instructions: Patient needs outpatient thyroid ultrasound for thyroid nodule, PCP to order it Discharge Disposition: HOME SELF-CARE
--- NOTE | 2023-02-26 10:33 | P.PN ---
Subjective Progress Note Date: 02/26/23 History of present illness: This is a 67-year-old male patient of Dr. Hsu with past medical history of hy pertension, dyslipidemia, valvular heart disease with aortic and mitral regurgitation. Patient states that he had sudden onset of dizziness and almost passed out yesterday. He checked his blood pressure at home and he kept getting an air message. He felt like the room was spinning and at the same time he had some tightening in his chest which he never had before. He also felt his heart was pounding and have shortness of breath. He sat down for about 5 minutes and symptoms resolved. He denies having any cough no fever or chills, no nausea or vomiting. Patient normally rides a bike every day and has had no episodes of chest pain. He also does pushups daily with no chest pain or other symptoms. Patient is seen today in the emergency center waiting for bed on the observation unit. He is status post 1 L of IV fluids and Antivert. EKG sinus tachycardia with right bundle branch block Chest x-ray: No acute process CT of the brain no acute process CTA of the head and neck no evidence of dissection, significant stenosis, no intracranial stenosis or intracranial aneurysm. Initial WBC 11.5 now CBC is unremarkable. INR 0.9. D-dimer 0.67. CO2 21 otherwise electrolytes and renal function are normal. Blood sugar 177. Troponin negative 3. ALT 51 otherwise liver function tests are normal. Magnesium 1.8. ProBNP 70. Home cardiac medications: Amlodipine 10 mg daily, hydrochlorothiazide 12.5 mg daily and losartan/hydrochlorothiazide 36775 milligrams daily, rosuvastatin 20 mg daily. Cardiac catheterization 2018 revealed normal coronary arteries Echocardiogram performed in the office 2020 revealed EF 55%. Moderate left ventricular hypertrophy. Mild aortic regurgitation. Mild tricuspid regurgitation. PA SP 39 mmHg. Lexiscan stress test performed 03/2022 revealed normal myocardial perfusion imaging. No evidence of stress-induced ischemia. Normal left ventricular syst olic function. 02/26 Patient is seen today in follow-up on the observation unit. He denies having a ny chest pain or shortness of breath. No dizziness but states he has a headache this morning. Echocardiogram reveals normal left ventricular size and systolic function. Limited study with mild tricuspid regurgitation. Results of the echocardiogram reviewed with the patient. Heart rate is in the 60s and 70s, blood pressure 124/73, pulse ox 97% on room air. Physical examination: Gen: This is a 67-year-old male resting in bed and appears to be comfortable and in no acute distress. VS: reviewed HEENT: Head is atraumatic, normocephalic. Pupils equal, round. Sclerae is anicteric. NECK: Supple. No JVD. . LUNGS: Clear to auscultation. No wheezes or rhonchi. No intercostal retractions. HEART: Regular rate and rhythm. Systolic murmur at the right upper sternal border. ABDOMEN: Soft No tenderness. EXTREMITIES: No pedal edema. No calf tenderness. NEUROLOGICAL: Patient is awake, alert and oriented x3. Assessment: Atypical chest pain, acute coronary syndrome ruled out Dizziness Hypertension Dyslipidemia Valvular heart disease with aortic and mitral regurgitation Plan: Continue patient's home cardiac medications Patient is cleared for discharge home and may follow up with Dr. Hsu as scheduled on Friday. Thank you kindly for this consultation. Nurse practitioner note has been reviewed, I agree with documented findings and plan of care. Patient was seen and examined. Objective - Vital Signs Vital signs: Vital Signs Temp 97.6 F 02/26/23 04:23 Pulse 68 02/26/23 04:23 Resp 16 02/26/23 04:23 BP 122/72 02/26/23 04:23 Pulse Ox 97 02/26/23 04:23 FiO2 Intake & Output 02/25/23 02/26/23 02/26/23 18:59 06:59 18:59 Other: # Voids 1 - Labs CBC & Chem 7: 02/25/23 09:03 02/25/23 09:03 Labs: Abnormal Lab Results - Last 24 Hours (Table) 02/25/23 Range/Units 09:03 Glucose 130 H (70-110) mg/dL
== END 2023-02-26 11:47 | disposition home or self-care (01) ==
LOC: EC 11:11 → 6NMEDSUR 16:44
PROVIDERS: ADMIT Hospitalist; ATTEND Hospitalist
DX: R07.9 Chest pain, unspecified (principal); R42 Dizziness and giddiness; I16.1 Hypertensive emergency; I10 Essential (primary) hypertension; E78.5 Hyperlipidemia, unspecified; I08.0 Rheumatic disorders of both mitral and aortic valves; H91.92 Unspecified hearing loss, left ear; G25.0 Essential tremor; G89.29 Other chronic pain; M54.2 Cervicalgia; M54.50 Low back pain, unspecified; Z96.82 Presence of neurostimulator; Z79.899 Other long term (current) drug therapy
CPT/HCPCS: 96360; 99285; 36415; 93005; 85379; 83880; 80053; 80048; 83735; 84484; 85025 ×2; 85610; 85730; 83036; 71046; 70496; 70450; 70498; 71275; G0378 ×3; C8929; Q9957; Q9967 ×2; 93306

== ENCOUNTER → 2023-02-27 | Outpatient (CLI) | payer MEDICARE ==
--- NOTE | 2023-02-27 13:01 | US ---
EXAMINATION TYPE: US thyroid st tissue head/neck DATE OF EXAM: 02/27/2023 COMPARISON: NONE CLINICAL INDICATION: Male, 67 years old with history of E04.1 NONTOXIC SINGLE THYROID NODULE; GLAND SIZE: Right Lobe: 5.5 x 2.5 x 1.9 cm Overall Parenchyma: heterogenous - subcentimeter nodules noted throughout, largest listed below Left Lobe: 5.9 x 2.0 x 2.0 cm Overall Parenchyma: heterogenous Isthmus Thickness: 0.6 cm NODULES RIGHT: # of nodules measured on right: 1 1. 0.7 X 0.6 x 0.7 cm, upper lateral, cystic or almost completely cystic, anechoic nodule, which is circular, with smooth margins, without echogenic foci. TR 1. no prior ultrasound available LEFT: # of nodules measured on left: 1 1. 1.4 X 1.1 x 1.1 cm, upper lateral, solid or almost completely solid, isoechoic nodule, which is circular, with ill-defined margins, without echogenic foci. TR 3. no prior ultrasound available ISTHMUS: # of nodules measured in the isthmus: 0 Bilateral neck scanned, no evidence of lymphadenopathy. IMPRESSION: Bilateral thyroid nodules with a 0.7 cm TR 1 right thyroid nodule and a 1.4 cm TR 3 left thyroid nodu le. ACR TI-RADS LEVEL: TR-RADS 3 - Mildly Suspicious: Follow if > 1.5 cm, FNA if > 2.5 cm *Highest TI-RADS level nodule reported
== END | disposition home or self-care (01) ==
LOC: RADUSWWP 12:09
PROVIDERS: ATTEND Family Medicine
DX: E04.2 Nontoxic multinodular goiter (principal)
CPT/HCPCS: 76536

== ENCOUNTER → 2023-03-10 | Outpatient (CLI) | payer MEDICARE ==
[2023-03-10 18:26] LABS: BUN/Creat Ratio 17.88 Ratio (12.00-20.00); Blood Urea Nitrogen 14.3 mg/dL (9.0-27.0); Carbon Dioxide 22.3 mmol/L (21.6-31.8); Chloride 103 mmol/L (96-109); Glucose 116 mg/dL (70-110); Potassium 4.5 mmol/L (3.5-5.5); Sodium 138 mmol/L (135-145)
== END | disposition home or self-care (01) ==
LOC: LABWHC1 11:03
PROVIDERS: ATTEND Internal Medicine Interventional Cardiology
DX: N18.9 Chronic kidney disease, unspecified (principal)
CPT/HCPCS: 36415; 80048

== ENCOUNTER → 2023-08-18 | Outpatient (CLI) | payer MEDICARE ==
--- NOTE | 2023-08-22 10:21 | US ---
EXAMINATION TYPE: US thyroid st tissue head/neck DATE OF EXAM: 08/18/2023 COMPARISON: NONE CLINICAL INDICATION: Male, 67 years old with history of E04.1 NONTOXIC SINGLE THYROID NODULE; thy nod ule GLAND SIZE: Right Lobe: 6.0 x 2.0 x 2.0 cm Overall Parenchyma: homogeneous Left Lobe: 4.8 x 1.3 x 1.7 cm Overall Parenchyma: homogeneous Isthmus Thickness: .4 cm NODULES RIGHT: # of nodules measured on right: 1 1. .8 X .8 x .9 cm, upper , mixed cystic and solid, anechoic nodule, which is wider than tall, with smooth margins, without echogenic foci. Prior size: .7 x .6 x .7 cm LEFT: # of nodules measured on left: 1 1. 1.4 X 1.0 x 1.3 cm, upper lateral, solid or almost completely solid, hypoechoic nodule, which is wider than tall, with smooth margins, without echogenic foci. Prior size: 1.4 x 1.1 x 1.1 cm ISTHMUS: # of nodules measured in the isthmus: 0 Bilateral neck scanned, no evidence of lymphadenopathy. IMPRESSION: Colloid cyst in the right lobe. Small solid left lobe nodule. Insufficient size for follow-up or FNA 2017 ACR TI-RADS LEVEL: 3 *Highest TI-RADS level nodule reported
== END | disposition home or self-care (01) ==
LOC: RADUSWWP 07:51
PROVIDERS: ATTEND Family Medicine
DX: E04.2 Nontoxic multinodular goiter (principal)
CPT/HCPCS: 76536

== ENCOUNTER → 2024-02-16 | Outpatient (CLI) | payer MEDICARE | END | disposition home or self-care (01) | LOC: LABWHC1 10:56 | PROVIDERS: ATTEND Urology | DX: C61 Malignant neoplasm of prostate (principal) | CPT/HCPCS: 36415; 84153 ==

== ENCOUNTER → 2024-08-20 | Outpatient (CLI) | payer MEDICARE | END | disposition home or self-care (01) | LOC: LABWHC1 10:21 | PROVIDERS: ATTEND Urology | DX: C61 Malignant neoplasm of prostate (principal) | CPT/HCPCS: 36415; 84153 ==

== ENCOUNTER → 2024-08-31 | Outpatient (CLI) | payer MEDICARE ==
[2024-08-31 15:02] LABS: Anion Gap 13.9 mmol/L (4.00-12.00); Carbon Dioxide 21.1 mmol/L (21.6-31.8); Potassium 4.2 mmol/L (3.5-5.5)
[2024-08-31 15:08] LABS: HCT 41.7 % (39.6-50.0); HGB 14.8 g/dL (13.0-17.0); MCH 31.7 pg (27.0-32.0); MCHC 35.5 g/dL (32.0-37.0); MCV 89.3 FL (80.0-97.0); NRBC Per 100 WBC 0 X 10*3/uL (0.00-0.01); Platelet Count 242 X 10*3/uL (140-440); RBC 4.67 X 10*6/uL (4.40-5.60); RDW 12.2 % (11.5-14.5); WBC 8.77 X 10*3/uL (4.50-10.00)
[2024-08-31 15:09] LABS: Basophils # (A) 0.04 X 10*3/uL (0.00-0.10); Basophils % (A) 0.5 %; Eosinophils # (A) 0.25 X 10*3/uL (0.04-0.35); Eosinophils % (A) 2.9 %; Lymphocytes # (A) 1.78 X 10*3/uL (0.90-5.00); Lymphocytes % (A) 20.3 %; Monocytes # (A) 0.71 X 10*3/uL (0.20-1.00); Monocytes % (A) 8.1 %; Neutrophils # (A) 5.96 X 10*3/uL (1.80-7.70); Neutrophils % (A) 67.9 %
== END | disposition home or self-care (01) ==
LOC: LABPAT 10:36
PROVIDERS: ATTEND Orthopaedic Surgery
DX: Z01.812 Encounter for preprocedural laboratory examination (principal); I45.10 Unspecified right bundle-branch block; M75.42 Impingement syndrome of left shoulder; R94.31 Abnormal electrocardiogram [ECG] [EKG]
CPT/HCPCS: 80051; 85025; 93005